=== PATIENT | female | born 1940 | race Caucasian/White ===

== ENCOUNTER 2023-10-29 19:30 | Inpatient (IN) | payer MEDICARE, BC ==
--- NOTE | 2023-10-29 19:39 | ED ---
Recheck HPI - General Stated Complaint: AFib RvR Time Seen by Provider: 10/29/23 19:32 Source: RN notes reviewed, old records reviewed Mode of arrival: ambulatory Limitations: no limitations - History of Present Illness Initial Comments: This is a 83-year-old female who presents with new onset atrial fibrillation with RVR. Patient feeling improved here in the ER and will be transferred for admission and accepted in transfer for admission to cardiology -: hour(s) Symptoms Since Prior Visit: no new symptoms Associated Symptoms: none Treatments Prior to Arrival: other (0) - Related Data Home Medications Medication Instructions Recorded Confirmed Aspirin 81 mg PO DAILY 12/14/15 10/29/23 Atorvastatin [Lipitor] 40 mg PO HS 10/29/23 10/29/23 metFORMIN HCL 1,000 mg PO BID 10/29/23 10/29/23 Previous Rx's Medication Instructions Recorded Apixaban [Eliquis] 5 mg PO BID #60 tab 11/02/23 Dapagliflozin Propanediol [Farxiga] 10 mg PO DAILY #30 tab 11/02/23 Furosemide [Lasix] 40 mg PO DAILY #30 tab 11/02/23 Losartan [Cozaar] 12.5 mg PO DAILY #30 tab 11/02/23 Magnesium Oxide [Mag-Ox] 400 mg PO DAILY #30 tab 11/02/23 Metoprolol Tartrate [Lopressor] 75 mg PO BID #180 tab 11/02/23 Allergies Allergy/AdvReac Type Severity Reaction Status Date / Time ibuprofen [From Motrin] Allergy Rash/Hives Verified 10/29/23 20:14 Review of Systems ROS Statement: Those systems with pertinent positive or pertinent negative responses have been documented in the HPI. ROS Other: All systems not noted in ROS Statement are negative. Past Medical History Past Medical History: Cancer, Diabetes Mellitus, GERD/Reflux, Hyperlipidemia, Hypertension, Osteoarthritis (OA) Additional Past Medical History / Comment(s): SKIN CANCER History of Any Multi-Drug Resistant Organisms: None Reported Past Surgical History: Appendectomy, Back Surgery, Section, Cholecystectomy, Hernia Repair, Joint Replacement, Tubal Ligation Additional Past Surgical History / Comment(s): NECK SURGERY, Past Anesthesia/Blood Transfusion Reactions: No Reported Reaction Past Psychological History: Anxiety Past Alcohol Use History: Rare Additional Past Alcohol Use History / Comment(s): STARTED SMOKING AT AGE 20 QUIT SMOKING IN 2005 SMOKED 3/4 PPD Past Drug Use History: None Reported - Past Family History Sister(s) Family Medical History: Cancer Additional Family Medical History / Comment(s): BREAST CANCER / ANOTHER SISTER HAD LEUKEMIA Son(s) Family Medical History: Cancer Additional Family Medical History / Comment(s): MELENOMA Brother(s) Family Medical History: Cancer Additional Family Medical History / Comment(s): SKIN CANCER General Exam General appearance: alert, in no apparent distress, anxious Head exam: Present: atraumatic, normocephalic, normal inspection Eye exam: Present: normal appearance, PERRL, EOMI. Absent: scleral icterus, conjunctival injection, periorbital swelling ENT exam: Present: normal exam, mucous membranes moist Neck exam: Present: normal inspection. Absent: tenderness, meningismus, lymph adenopathy Respiratory exam: Present: normal lung sounds bilaterally. Absent: respiratory distress, wheezes, rales, rhonchi, stridor Cardiovascular Exam: Present: tachycardia, irregular rhythm, normal heart sounds. Absent: systolic murmur, diastolic murmur, rubs, gallop, clicks GI/Abdominal exam: Present: soft, normal bowel sounds. Absent: distended, tenderness, guarding, rebound, rigid Extremities exam: Present: normal inspection, full ROM, normal capillary refill. Absent: tenderness, pedal edema, joint swelling, calf tenderness Back exam: Present: normal inspection Neurological exam: Present: alert, oriented X3, CN II-XII intact Psychiatric exam: Present: normal affect, normal mood Skin exam: Present: warm, dry, intact, normal color. 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 ] Respiratory 20 Rate Blood Pressure 140/81 Blood Pressure [Left Arm] O2 Sat by Pulse 74 L 76 L Oximetry Fraction of 100 Inspired Oxygen (FIO2) 10/29/23 10/29/23 10/29/23 20:16 21:03 21:42 Temperature Pulse Rate 125 H 115 H 90 Pulse Rate [ 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 Production ] Respiratory 18 Rate Blood Pressure 107/64 Blood Pressure [Left Arm] O2 Sat by Pulse 97 Oximetry Fraction of 100 Inspired Oxygen (FIO2) 10/29/23 10/29/23 10/30/23 23:06 23:56 04:00 Temperature Pulse Rate 90 Pulse Rate [ 102 H 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 Production ] Respiratory 20 26 H Rate Blood Pressure 113/81 Blood Pressure 120/90 [Left Arm] O2 Sat by Pulse 94 L 93 L 90 L Oximetry Fraction of Inspired Oxygen (FIO2) 10/30/23 10/30/23 10/30/23 08:21 09:25 10:43 Temperature 98.3 F Pulse Rate 77 63 58 L Pulse Rate [ 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 Production ] Respiratory 18 18 18 Rate Blood Pressure 115/72 133/73 107/70 Blood Pressure [Left Arm] O2 Sat by Pulse 95 93 L 100 Oximetry Fraction of Inspired Oxygen (FIO2) 10/30/23 10/30/23 10/30/23 12:42 16:02 18:46 Temperature 97.9 F Pulse Rate 81 90 Pulse Rate [ 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 Production ] Respiratory 18 18 Rate Blood Pressure 151/94 Blood Pressure [Left Arm] O2 Sat by Pulse 100 96 97 Oximetry Fraction of Inspired Oxygen (FIO2) 10/30/23 20:32 Temperature Pulse Rate 78 Pulse Rate [ 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 Production ] Respiratory 18 Rate Blood Pressure 147/70 Blood Pressure [Left Arm] O2 Sat by Pulse 96 Oximetry Fraction of Inspired Oxygen (FIO2) - Reevaluation(s) Reevaluation #1: 10/29/23 19:38 Records reviewed Reevaluation #2: 10/29/23 19:38 Patient remains asymptomatic here in the ER Reevaluation #3: 10/29/23 19:39 Patient informed of results and questions answered Reevaluation #4: Was pt. sent in by a medical professional or institution (, PA, INSPECTOR TUBES, urgent care, hospital, or detention...) When possible be specific @ -no Did you speak to anyone other than the patient for history (EMS, parent, family, police, friend...)? What history was obtained from this source @ -no Did you review nursing and triage notes (agree or disagree)? Why? @ -agree Are old charts reviewed (outside hosp., previous admission, EMS record, old EKG, old radiological studies, urgent care reports/EKG's, detention records)? Report findings @ -yes Differential Diagnosis (chest pain, altered mental status, abdominal pain women, abdominal pain men, vaginal bleeding, weakness, fever, dyspnea, syncope, he adache, dizziness, GI bleed, back pain, seizure, CVA, palpatations, mental health, musculoskeletal)? @ -prior EKG interpreted by me (3pts min.). @ -yes X-rays interpreted by me (1pt min.). @ -yes positive for CHF CT interpreted by me (1pt min.). @ -no U/S interpreted by me (1pt. min.). @ -no What testing was considered but not performed or refused? (CT, X-rays, U/S, labs)? Why? @ -none What meds were considered but not given or refused? Why? @ -none Did you discuss the management of the patient with other professionals (professionals i.e. Dr., PA, INSPECTOR TUBES, lab, RT, psych nurse, social media community manager, air boatswain, teacher, debt recovery officer, rifle case repairer)? Give summary @ -no Was smoking cessation discussed for >3mins.? @ -no Was critical care preformed (if so, how long)? @ -yes31 Were there social determinants of health that impacted care today? How? (Homelessness, low income, unemployed, alcoholism, drug addiction, transportation, low edu. Level, literacy, decrease access to med. care, shelter, rehab)? @ -none Was there de-escalation of care discussed even if they declined (Discuss DNR or withdrawal of care, Hospice)? DNR status @ -no What co-morbidities impacted this encounter? (DM, HTN, Smoking, COPD, CAD, Cancer, CVA, ARF, Chemo, Hep., AIDS, mental health diagnosis, sleep apnea, morbid obesity)? @ -none Was patient admitted / discharged? Hospital course, mention meds given and route, prescriptions, significant lab abnormalities, going to OR and other pertinent info. @ - 83 female to ER accepted in transfer for atrial fibrillation with RVR will be admitted for new onset A-fib with RVR currently with better rate control Admitted Undiagnosed new problem with uncertain prognosis? @ -no Drug Therapy requiring intensive monitoring for toxicity (Heparin, Nitro, Insulin, Cardizem)? @ -no Were any procedures done? @ -no Diagnosis/symptom? @ -A-fib with RVR CHF with hypoxia Acute, or Chronic, or Acute on Chronic? @ -Acute Uncomplicated (without systemic symptoms) or Complicated (systemic symptoms)? @ -Complicated Side effects of treatment? @ -no Exacerbation, Progression, or Severe Exacerbation? @ -exacerbation Poses a threat to life or bodily function? How? (Chest pain, [place], [place], pneumonia, PE, COPD, DKA, ARF, appy, cholecystitis, CVA, Diverticulitis, Homicidal, Suicidal, threat to staff... and all critical care pts) @ -yes arrhythmia Reevaluation #5: Differential Palpitations Ventricular arrhythmias, atrial arrhythmias, myocardial infarction, anemia, thyrotoxicosis, electrolyte imbalance, hypokalemia, pulmonary embolism, pulmonary disease, drugs, alcohol, anxiety, stress.... This is not meant to be an all-inclusive list. - Consultations Consultation #1: With admitting physicians who agreed to admit this patient Medical Decision Making - Medical Decision Making 83 female to ER accepted in transfer for atrial fibrillation with RVR will be admitted for new onset A-fib with RVR currently with better rate control - Lab Data Result diagrams: 11/02/23 11:09 11/02/23 11:09 - EKG Data -: EKG Interpreted by Me (EKG is A-fib with RVR 131 QRS 150 QTc 409) - Radiology Data Radiology results: report reviewed (Chest x-ray is positive for CHF), image reviewed Critical Care Time Critical Care Time: Yes Total Critical Care Time: 31 Disposition Clinical Impression: New onset atrial fibrillation, Atrial fibrillation with rapid ventricular response, CHF (congestive heart failure), Pulmonary edema Disposition: ADMITTED IP TO THIS HOSP Is patient prescribed a controlled substance at d/c from ED?: No Time of Disposition: 20:00
[2023-10-29] MEDS ORDERED: MORPHINE SULFATE 4 MG/ML SYRINGE IV PRN (19:40)
[2023-10-29] MEDS ORDERED: NALOXONE 0.4 MG/ML 1 ML VIAL IV PRN (19:40)
[2023-10-29] MEDS ORDERED: ONDANSETRON 4 MG/2 ML VIAL IVP PRN (19:40)
[2023-10-29] MEDS: IPRATROPIUM-ALBUTEROL 3 ML NEB INHALATION STA (20:16)
[2023-10-29] MEDS: LORazepam 2 MG/ML INJ IV STA (20:22)
[2023-10-29] MEDS: MAGNESIUM SULFATE-D5W PMX 1 GM in DEXTROSE/WATER 1 100ML.BAG IVPB ONE (20:27)
[2023-10-29] MEDS: SODIUM CHLORIDE 0.9% 1,000 ML IV SCH (20:27)
--- NOTE | 2023-10-29 20:54 | XR ---
EXAMINATION TYPE: XR chest 1V portable DATE OF EXAM: 10/29/2023 HISTORY: Shortness of breath. COMPARISON: None. TECHNIQUE: Single view of the chest is submitted. FINDINGS: Demonstrated are scattered senescent parenchymal change. Perihilar and bibasilar infiltrates may reflect pneumonia however pulmonary edema is an additional co nsideration. Correlate clinically. The heart is mildly enlarged. Hilar and mediastinal structures are within normal limits. Degenerative changes are seen of the dorsal spine. IMPRESSION: 1. Perihilar and bibasilar infiltrates may reflect pneumonia however pulmonary edema is an additiona l consideration. Correlate clinically.
[2023-10-29] MEDS: DILTIAZEM 125 MG in SODIUM CHLORIDE 0.9% 100 ML IV SCH (21:33)
[2023-10-29] MEDS: DILTIAZEM DRIP BOLUS FROM BAG 1 MG SOLN IV ONE (21:33)
[2023-10-29] MEDS: HEPARIN SOD,PORK IN 0.45% NACL 25,000 UNIT in 0.45% NACL 1 250ML.BAG IV SCH (21:39)
[2023-10-30 04:30] LABS: Basophils # (A) 0.1 k/uL (0-0.2); Basophils % (A) 1 %; Eosinophils # (A) 0.3 k/uL (0-0.7); Eosinophils % (A) 2 %; HCT 34.4 % (34.0-46.0); Hypochromasia Slight; Lymphocytes # (A) 3.7 k/uL (1.0-4.8); Lymphocytes % (A) 30 %; MCH 27.9 pg (25.0-35.0); Mean Platelet Volume 7.6; Monocytes # (A) 0.6 k/uL (0-1.0); Monocytes % (A) 5 %; Neutrophils # (A) 7.4 k/uL (1.3-7.7); Neutrophils % (A) 61 %; Platelet Count 303 k/uL (150-450); RBC 3.95 m/uL (3.80-5.40); RDW 14.7 % (11.5-15.5); WBC 12.1 k/uL (3.8-10.6)
[2023-10-30 04:43] LABS: ALT 18 U/L (4-34); AST 27 U/L (14-36); African American GFR (CKD) 59 (>60 ml/min/1.73 sqM); Albumin 3.6 g/dL (3.5-5.0); Alkaline Phosphatase 72 U/L (38-126); Anion Gap 12 mmol/L; Blood Urea Nitrogen 28 mg/dL (7-17); Calcium 8.9 mg/dL (8.4-10.2); Carbon Dioxide 23 mmol/L (22-30); Chloride 103 mmol/L (98-107); Glucose 122 mg/dL (74-99); Magnesium 1.3 mg/dL (1.6-2.3); Non-African American GFR(CKD) 51 (>60 ml/min/1.73 sqM); Phosphorus 4.8 mg/dL (2.5-4.5); Potassium 3.7 mmol/L (3.5-5.1); Sodium 138 mmol/L (137-145); Total Bilirubin 0.5 mg/dL (0.2-1.3); Total Protein 6.7 g/dL (6.3-8.2)
[2023-10-30] MEDS: HEPARIN SODIUM 1,000 UN/ML (10ML VL) IV PRN (04:55)
[2023-10-30] MEDS ORDERED: DEXTROSE 50% SYRINGE 50 ML IVP PRN ×2 (10:03)
[2023-10-30] MEDS ORDERED: METOPROLOL TARTRATE 50 MG TAB PO SCH (10:15)
[2023-10-30] MEDS: FUROSEMIDE 10 MG/ML 4 ML VIAL IV SCH (10:38)
[2023-10-30] MEDS: metFORMIN 500 MG TAB PO SCH (10:38)
[2023-10-30] MEDS: ASPIRIN 81 MG PO SCH (10:38)
[2023-10-30 12:42] LABS: Glucose,Whole Blood 151 mg/dL (70-110)
[2023-10-30] MEDS: INSULIN ASPART (NovoLOG) 100 UNIT/ML VIAL SQ SCH (12:57)
--- NOTE | 2023-10-30 15:43 | P.CRDCN ---
History of Present Illness Consult date: 10/30/23 Consult reason: atrial fibrillation (A-fib with RVR) History of present illness: HISTORY OF PRESENT ILLNESS: Is a 83 year-old female with past medical history significant for hypertension hyperlipidemia, diabetes, chronic back pain status post surgical repair of scoliosis and ruptured disc over 10 years ago.. She is a patient of Dr. Jose rader nd follows up with him in the office. We have been asked to see the patient in consultation for A-fib with RVR. Patient was examined at the bedside in the emergency room. Patient states she could not breathe, which started on Thursday. She states yesterday she could not do much due to shortness of breath and could not catch her breath. She endorses dyspnea on exertion, feeling heaviness in the chest and a little leg swelling for the last week or so. She denies orthopnea chest pain weight gain or palpitations. She is currently in sinus rhythm. DIAGNOSTICS: - EKG reveals showed A-fib with RVR rate of 131 - Chest xray shows perihilar and bibasilar infiltrates possibly pneumonia or pulmonary edema - Laboratory data: WBCs 12.1. Hemoglobin 11. PTT 34.6. Phosphorus 4.8. Magnesium 1.3. Troponins x 2 negative. - Current home cardiac medications include Lipitor 40 mg daily, aspirin 81 mg daily, lisinopril 40 mg daily, amlodipine 5 mg daily, metoprolol 150 mg daily, hydrochlorothiazide 25 mg daily Most recent echocardiogram in February 2021 showed EF 55%, mild MR, mild TR. REVIEW OF SYSTEMS: At the time of my exam as stated above in HPI. PHYSICAL EXAM: VITAL SIGNS: Reviewed. Normotensive, hemodynamically stable, satting well on 15 L high flow nasal cannula GENERAL: Well-developed in no acute distress. HEENT: Head is normocephalic. Pupils are equal, round. Sclerae anicteric. Mucous membranes of the mouth are moist. Neck supple. No JVD or thyromegaly LUNGS: Respirations even. Bilateral rhonchi and crackles HEART: S1-S2 present no murmurs rubs or gallops. Regular rate and rhythm ABDOMEN: Soft. Nontender to palpation. EXTREMITIES: Normal range of motion. No clubbing or cyanosis. Peripheral pulses intact. Edema in bilateral lower extremities NEUROLOGIC: Awake and alert. Oriented x 3. ASSESSMENT: Suspect heart failure exacerbation, no history of CHF Pulmonary edema A-fib with RVR, currently sinus rhythm Hypertension currently normotensive Hyperlipidemia Hypomagnesemia Diabetes Chronic back pain PLAN: Follow-up on echocardiogram Discontinued Cardizem drip Discontinued IV fluids Continue aspirin 81 mg daily, Lipitor 40 mg daily Continue IV Lasix 40 mg every 12 hours BP meds held due to controlled pressures Optimization of glucose control per primary team Wean oxygen as tolerated Monitor volume status, I's and O's, daily weights, electrolytes and renal function Further recommendations to follow based upon clinical course Thank you kindly for this consultation. Past Medical History Past Medical History: Cancer, Diabetes Mellitus, GERD/Reflux, Hyperlipidemia, Hypertension, Osteoarthritis (OA) Additional Past Medical History / Comment(s): SKIN CANCER History of Any Multi-Drug Resistant Organisms: None Reported Past Surgical History: Appendectomy, Back Surgery, Section, Cholecystectomy, Hernia Repair, Joint Replacement, Tubal Ligation Additional Past Surgical History / Comment(s): NECK SURGERY, Past Anesthesia/Blood Transfusion Reactions: No Reported Reaction Smoking Status: Former smoker - Past Family History Sister(s) Family Medical History: Cancer Additional Family Medical History / Comment(s): BREAST CANCER / ANOTHER SISTER HAD LEUKEMIA Son(s) Family Medical History: Cancer Additional Family Medical History / Comment(s): MELENOMA Brother(s) Family Medical History: Cancer Additional Family Medical History / Comment(s): SKIN CANCER Medications and Allergies Home Medications Medication Instructions Recorded Confirmed Type Aspirin 81 mg PO DAILY 12/14/15 10/29/23 History Metoprolol Tartrate [Lopressor] 100 mg PO DAILY 12/14/15 10/29/23 History Naproxen 500 mg PO DAILY 12/14/15 10/29/23 History hydroCHLOROthiazide [Hydrodiuril] 25 mg PO DAILY 12/14/15 10/29/23 History Atorvastatin [Lipitor] 40 mg PO HS 10/29/23 10/29/23 History Metoprolol Tartrate [Lopressor] 50 mg PO W/SUPPER 10/29/23 10/29/23 History amLODIPine [Norvasc] 5 mg PO DAILY 10/29/23 10/29/23 History lisinopriL 40 mg PO DAILY 10/29/23 10/29/23 History metFORMIN HCL 1,000 mg PO BID 10/29/23 10/29/23 History Allergies Allergy/AdvReac Type Severity Reaction Status Date / Time ibuprofen [From Motrin] Allergy Rash/Hives Verified 10/29/23 20:14 Physical Exam Vitals: Vital Signs Temp Pulse Pulse Resp BP BP Pulse Ox 10/30/23 10:43 58 L 18 107/70 100 10/30/23 09:25 63 18 133/73 93 L 10/30/23 08:21 98.3 F 77 18 115/72 95 10/30/23 04:00 102 H 26 H 120/90 90 L 10/29/23 23:56 93 L 10/29/23 23:06 90 20 113/81 94 L 10/29/23 21:42 90 18 107/64 97 10/29/23 21:03 115 H 10/29/23 20:16 125 H 10/29/23 20:13 10/29/23 20:02 76 L 10/29/23 19:48 97.4 F L 133 H 20 140/81 74 L FiO2 10/30/23 10:43 10/30/23 09:25 10/30/23 08:21 10/30/23 04:00 10/29/23 23:56 10/29/23 23:06 10/29/23 21:42 10/29/23 21:03 10/29/23 20:16 100 10/29/23 20:13 100 10/29/23 20:02 10/29/23 19:48 Intake and Output 10/29/23 10/30/23 10/30/23 22:59 06:59 14:59 Intake Total 70.219 Balance 70.219 Intake: Intake, IV Titration 70.219 Amount Heparin Sod,Pork in 0.45% 70.219 NaCl 25,000 unit In 0.45 % NaCl 1 250ml.bag @ 12 UNITS/KG/HR 9.798 mls/hr IV .Q24H [facility] Rx#: [id number] Other: Weight 81.647 kg 81.647 kg Results 10/30/23 04:07 10/30/23 04:07 Cardiac Enzymes 10/29/23 10/30/23 10/30/23 Range/Units 20:51 00:45 04:07 AST 27 (14-36) U/L Troponin I <0.012 <0.012 (0.000-0.034) ng/mL Coagulation 10/30/23 Range/Units 04:07 APTT 35.1 H (22.0-30.0) sec CBC 10/30/23 Range/Units 04:07 WBC 12.1 H (3.8-10.6) k/uL RBC 3.95 (3.80-5.40) m/uL Hgb 11.0 L (11.4-16.0) gm/dL Hct 34.4 (34.0-46.0) % Plt Count 303 (150-450) k/uL Comprehensive Metabolic Panel 10/30/23 Range/Units 04:07 Sodium 138 (137-145) mmol/L Potassium 3.7 (3.5-5.1) mmol/L Chloride 103 (98-107) mmol/L Carbon Dioxide 23 (22-30) mmol/L BUN 28 H (7-17) mg/dL Creatinine 1.01 (0.52-1.04) mg/dL Glucose 122 H (74-99) mg/dL Calcium 8.9 (8.4-10.2) mg/dL AST 27 (14-36) U/L ALT 18 (4-34) U/L Alkaline Phosphatase 72 (38-126) U/L Total Protein 6.7 (6.3-8.2) g/dL Albumin 3.6 (3.5-5.0) g/dL Current Medications Generic Name Dose Route Start Last Admin Trade Name Freq PRN Reason Stop Dose Admin Aspirin 81 mg 10/30/23 10:15 10/30/23 10:38 Aspirin 81 Mg PO 81 mg DAILY NANNETTE Administration Atorvastatin Calcium 40 mg 10/30/23 21:00 Atorvastatin 40 Mg Tab PO HS NANNETTE Dextrose/Water 25 ml 10/30/23 10:03 Dextrose 50% Syringe 50 Ml IVP PER PROTOCOL PRN Hypoglycemia Protocol Dextrose/Water 50 ml 10/30/23 10:03 Dextrose 50% Syringe 50 Ml IVP PER PROTOCOL PRN Hypoglycemia Protocol Furosemide 40 mg 10/30/23 09:00 10/30/23 10:38 Furosemide 10 Mg/Ml 4 Ml Vial IV 40 mg Q12HR NANNETTE Administration Heparin Sodium (Porcine) 0 unit 10/29/23 19:56 10/30/23 04:55 Heparin Sodium 1,000 Un/Ml (10ml Vl) IV 2,025 unit PER PROTOCOL PRN Administration Low PTT Protocol Heparin Sodium/Sodium Chloride 250 mls @ 9.798 mls/hr 10/29/23 20:00 10/30/23 04:49 25,000 unit/ Sodium Chloride IV 14 units/kg/hr .Q24H [facility] 11.431 mls/hr Titration Protocol 12 UNITS/KG/HR Insulin Aspart 0 unit 10/30/23 12:30 Insulin Aspart (Novolog) 100 Unit/Ml Vial SQ AC-TID [facility] Protocol Metformin HCl 1,000 mg 10/30/23 10:15 10/30/23 10:38 Metformin 500 Mg Tab PO 1,000 mg BID NANNETTE Administration Morphine Sulfate 4 mg 10/29/23 19:40 Morphine Sulfate 4 Mg/Ml Syringe IV Q4HR PRN Severe Pain (Scale 7 to 10) Naloxone HCl 0.2 mg 10/29/23 19:40 Naloxone 0.4 Mg/Ml 1 Ml Vial IV Q2M PRN Opioid Reversal Ondansetron HCl 4 mg 10/29/23 19:40 Ondansetron 4 Mg/2 Ml Vial IVP Q8HR PRN Nausea And Vomiting Intake and Output 10/29/23 10/30/23 10/30/23 22:59 06:59 14:59 Intake Total 70.219 Balance 70.219 Intake: Intake, IV Titration 70.219 Amount Heparin Sod,Pork in 0.45% 70.219 NaCl 25,000 unit In 0.45 % NaCl 1 250ml.bag @ 12 UNITS/KG/HR 9.798 mls/hr IV .Q24H [facility] Rx#: [id number] Other: Weight 81.647 kg 81.647 kg 10/30/23 04:07 10/30/23 04:07
--- NOTE | 2023-10-30 15:51 | P.HPIM ---
History of Present Illness H&P Date: 10/30/23 Chief Complaint: Short of breath This is a pleasant 83-year-old patient who follows with Dr. 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 Chronic stable medical conditions include diabetes, GERD, hypertension, hyperlipidemia, osteoarthritis. No known prior cardiac history. Patient presents to ER with 2 days of unable to breathe. Some edema. Slight cough. No fever no chills. Feeling slight heaviness in the chest. She was found to be in atrial fibrillation with rapid ventricular rate overnight. Started on a Cardizem drip and IV heparin drip. This morning the Cardizem drip taken off. Rate better controlled. Patient on 15 L of nasal cannula. Heart rate this morning in the 90s. Review of systems: GEN.: Tired EYES: None HEENT: None NECK: None RESPIRATORY: As above e CARDIOVASCULAR: As above GASTROINTESTINAL: None GENITOURINARY: None MUSCULOSKELETAL: Multiple joint pains. Including right sciatica e LYMPHATICS: None HEMATOLOGICAL: None PSYCHIATRY: None NEUROLOGICAL: None Social history: Lives alone. Patient started smoking at age of 20 stopped in 2005. Smoked about three-quarter pack a day. Alcohol rarely. Physical examination: VITAL SIGNS: 97.4, 133, 26, 140/81, 76% on 10 L nonrebreather on presentation GENERAL: BMI 30,. Reclining in bed, tired short of breath EYES: Pupils equal. Conjunctiva armaan l. HEENT: External appearance of nose and ears normal, oral cavity grossly normal. NECK: JVD possibly raised; masses not palpable. HEART: Irregular heart sounds; edema present. LUNGS: Respiratory rate increased, decreased breath sounds. ABDOMEN: Soft, nontender, liver spleen not palpable, no masses palpable. PSYCH: Alert and oriented x3; mood and affect armaan l. MUSCULOSKELETAL:No Clubbing/cyanosis;muscles-grossly intact, OA NEUROLOGICAL: Cranial nerves grossly intact; no facial asymmetry, power and s ensation grossly intact. LYMPHATICS: No lymph nodes palpable in the axilla and neck INVESTIGATIONS, reviewed in the clinical context: December 30, 2023: White count 12.1 hemoglobin 11 platelets 303 sodium 138 potassium 3.7 BUN 28 creatinine 1.01 Troponin I less than 0.012 x 2 EKG tracing personally reviewed by me-atrial fibrillation. Right bundle gaby block. Rate 131 Chest x-ray film personally reviewed by me-cardiomegaly. Pulm edema Assessment plan: -Acute congestive heart failure exacerbation precipitated by uncontrolled atrial fibrillation. EF not known currently. Causing acute hypoxic respiratory failure IV Lasix every 12. I's and O's. 2D echocardiogram. Cardiology consulted -New onset of atrial fibrillation rapid ventricular rate. Started on Cardizem drip overnight. This morning discontinued. Heart rate currently in the 90s. IV heparin. -Acute hypoxic respiratory failure severe secondary to pulm edema Initially on 15 L nasal cannula. Titrate down oxygen -Hyperlipidemia Lipitor 40 mg nightly -Essential hypertension Blood pressure medications per cardiology -Diabetes mellitus type 2 on oral hypoglycemic Metformin. Diabetic diet. -Primary osteoarthritis Naproxen. Tylenol as needed -DNR Care was discussed with patient. Questions answered. Past Medical History Past Medical History: Cancer, Diabetes Mellitus, GERD/Reflux, Hyperlipidemia, Hypertension, Osteoarthritis (OA) Additional Past Medical History / Comment(s): SKIN CANCER History of Any Multi-Drug Resistant Organisms: None Reported Past Surgical History: Appendectomy, Back Surgery, Section, Cholecystectomy, Hernia Repair, Joint Replacement, Tubal Ligation Additional Past Surgical History / Comment(s): NECK SURGERY, Past Anesthesia/Blood Transfusion Reactions: No Reported Reaction Smoking Status: Former smoker - Past Family History Sister(s) Family Medical History: Cancer Additional Family Medical History / Comment(s): BREAST CANCER / ANOTHER SISTER HAD LEUKEMIA Son(s) Family Medical History: Cancer Additional Family Medical History / Comment(s): MELENOMA Brother(s) Family Medical History: Cancer Additional Family Medical History / Comment(s): SKIN CANCER Medications and Allergies Home Medications Medication Instructions Recorded Confirmed Type Aspirin 81 mg PO DAILY 12/14/15 10/29/23 History Metoprolol Tartrate [Lopressor] 100 mg PO DAILY 12/14/15 10/29/23 History Naproxen 500 mg PO DAILY 12/14/15 10/29/23 History hydroCHLOROthiazide [Hydrodiuril] 25 mg PO DAILY 12/14/15 10/29/23 History Atorvastatin [Lipitor] 40 mg PO HS 10/29/23 10/29/23 History Metoprolol Tartrate [Lopressor] 50 mg PO W/SUPPER 10/29/23 10/29/23 History amLODIPine [Norvasc] 5 mg PO DAILY 10/29/23 10/29/23 History lisinopriL 40 mg PO DAILY 10/29/23 10/29/23 History metFORMIN HCL 1,000 mg PO BID 10/29/23 10/29/23 History Allergies Allergy/AdvReac Type Severity Reaction Status Date / Time ibuprofen [From Motrin] Allergy Rash/Hives Verified 10/29/23 20:14 Physical Exam Vitals: Vital Signs Temp Pulse Pulse Resp BP BP Pulse Ox 10/30/23 09:25 63 18 133/73 93 L 10/30/23 08:21 98.3 F 77 18 115/72 95 10/30/23 04:00 102 H 26 H 120/90 90 L 10/29/23 23:56 93 L 10/29/23 23:06 90 20 113/81 94 L 10/29/23 21:42 90 18 107/64 97 10/29/23 21:03 115 H 10/29/23 20:16 125 H 10/29/23 20:13 10/29/23 20:02 76 L 10/29/23 19:48 97.4 F L 133 H 20 140/81 74 L FiO2 10/30/23 09:25 10/30/23 08:21 10/30/23 04:00 10/29/23 23:56 10/29/23 23:06 10/29/23 21:42 10/29/23 21:03 10/29/23 20:16 100 10/29/23 20:13 100 10/29/23 20:02 10/29/23 19:48 Intake and Output 10/29/23 10/30/23 10/30/23 22:59 06:59 14:59 Intake Total 70.219 Balance 70.219 Intake: Intake, IV Titration 70.219 Amount Heparin Sod,Pork in 0.45% 70.219 NaCl 25,000 unit In 0.45 % NaCl 1 250ml.bag @ 12 UNITS/KG/HR 9.798 mls/hr IV .Q24H [facility] Rx#: [id number] Other: Weight 81.647 kg 81.647 kg Results CBC & Chem 7: 10/30/23 04:07 10/30/23 04:07 Labs: Abnormal Lab Results - Last 24 Hours (Table) 10/30/23 10/30/23 10/30/23 Range/Units 04:07 04:07 04:07 WBC 12.1 H (3.8-10.6) k/uL Hgb 11.0 L (11.4-16.0) gm/dL APTT 35.1 H (22.0-30.0) sec BUN 28 H (7-17) mg/dL Glucose 122 H (74-99) mg/dL Phosphorus 4.8 H (2.5-4.5) mg/dL Magnesium 1.3 L (1.6-2.3) mg/dL Thrombosis Risk Factor Assmnt - Choose All That Apply Other Risk Factors: Yes Each Risk Factor Represents 3 Points: Age 75 years or older Thrombosis Risk Factor Assessment Total Risk Factor Score: 3 Thrombosis Risk Factor Assessment Level: Moderate Risk
[2023-10-30 18:43] LABS: Glucose,Whole Blood 129 mg/dL (70-110)
[2023-10-30 22:00] LABS: Glucose,Whole Blood 152 mg/dL (70-110)
[2023-10-30] MEDS: ATORVASTATIN 40 MG TAB PO SCH (22:16)
[2023-10-30] MEDS: METOPROLOL TARTRATE 25 MG TAB PO SCH (22:35)
[2023-10-31 06:04] LABS: Glucose,Whole Blood 130 mg/dL (70-110)
--- NOTE | 2023-10-31 09:21 | P.PN ---
Subjective Progress Note Date: 10/31/23 The patient was seen and evaluated. She is feeling better with the shortness of breath has improved which has been maintaining normal sinus mechanism with the echo still pending. She is on IV Lasix and the kidney function seems to be stable. The physical examination is remarkable for mild sinus tachycardia with regular rhythm and clear breathing sounds bilaterally and mild bilateral lower extremities edema Assessment Heart failure of unknown etiology Paroxysmal atrial fibrillation currently the patient is in sinus rhythm The multiple comorbid conditions Plan Continue Lasix for additional 24 hours Follow-up on the echocardiogram Follow-up with the kidney function and electrolytes and continue monitoring the kidney function and electrolytes Please start the patient on metoprolol Consider switching the patient to oral anticoagulation once the echo is back and we know that she does not need any invasive procedure Objective - Vital Signs Vital signs: Vital Signs Temp 97.8 F 10/31/23 08:00 Pulse 115 H 10/31/23 08:00 Resp 18 10/31/23 08:00 BP 149/81 10/31/23 08:00 Pulse Ox 97 10/31/23 08:00 FiO2 100 10/29/23 20:16 Intake & Output 10/30/23 10/31/23 10/31/23 18:59 06:59 18:59 Intake Total 353.900 22.1 Output Total 850 Balance -496.100 22.1 Weight 81.6 kg Intake: Intake, IV Titration 293.900 22.1 Amount Heparin Sod,Pork in 0.45% 293.900 22.1 NaCl 25,000 unit In 0.45 % NaCl 1 250ml.bag @ 12 UNITS/KG/HR 9.798 mls/hr IV .Q24H [facility] Rx#: [id number] Oral 60 Output: Urine 850 Other: Voiding Method External Catheter - Labs CBC & Chem 7: 10/30/23 04:07 10/30/23 04:07 Labs: Abnormal Lab Results - Last 24 Hours (Table) 10/30/23 10/30/23 10/30/23 Range/Units 11:23 12:41 18:43 APTT 34.6 H (22.0-30.0) sec POC Glucose (mg/dL) 151 H 129 H (70-110) mg/dL Magnesium (1.6-2.3) mg/dL 10/30/23 10/30/23 10/31/23 Range/Units 21:07 21:57 06:03 APTT 49.6 H (22.0-30.0) sec POC Glucose (mg/dL) 152 H 130 H (70-110) mg/dL Magnesium (1.6-2.3) mg/dL 10/31/23 10/31/23 Range/Units 07:13 07:13 APTT 108.3 H* (22.0-30.0) sec POC Glucose (mg/dL) (70-110) mg/dL Magnesium 1.2 L (1.6-2.3) mg/dL
[2023-10-31 11:32] LABS: Glucose,Whole Blood 154 mg/dL (70-110)
[2023-10-31] MEDS: METOPROLOL TARTRATE 25 MG TAB PO SCH (12:08)
--- NOTE | 2023-10-31 16:17 | CA ---
Transthoracic Echo Report Name: Sarah Mason Age: 83 Gender: F : 1940 Exam Date: 10/30/2023 14:59 Exam Location: [place] [facility] Ht (in): 65 Wt (lb): 180 Ordering Physician: Tori Headley Attending/Referring Phys: [id number], Fang Gluing Machine Feeder Samantha Fong RDCS Procedure CPT: Indications: LVF Cardiac Hx: Technical Quality: Fair Contrast 1: Total Dose (mL): Contrast 2: Total Dose (mL): MEASUREMENTS (Male / Female) Normal Values 2D ECHO LV Diastolic Diameter PLAX 3.6 cm 4.2 - 5.9 / 3.9 - 5.3 cm LV Systolic Diameter PLAX 2.3 cm IVS Diastolic Thickness 1.3 cm 0.6 - 1.0 / 0.6 - 0.9 cm LVPW Diastolic Thickness 1.3 cm 0.6 - 1.0 / 0.6 - 0.9 cm LV Relative Wall Thickness 0.7 RV Internal Dim ED PLAX 2.7 cm LA Systolic Diameter LX 4.4 cm 3.0 - 4.0 / 2.7 - 3.8 cm LV Diastolic Volume MOD BP 43.4 cm??? 67 - 155 / 56 - 104 cm??? LV Systolic Volume MOD BP 16.4 cm??? 22 - 58 / 19 - 49 cm??? LV Ejection Fraction MOD BP 62.1 % >= 55 % LV Cardiac Index MOD BP 1140.4 cm???/min???m??? LV Diastolic Volume MOD 4C 43.4 cm??? LV Systolic Volume MOD 4C 18.1 cm??? LV Ejection Fraction MOD 4C 58.3 % LV Cardiac Index MOD 4C 1071.8 cm???/min???m??? LV Diastolic Length 4C 6.8 cm LV Systolic Length 4C 5.3 cm LV Diastolic Volume MOD 2C 42.7 cm??? LV Systolic Volume MOD 2C 14.8 cm??? LV Ejection Fraction MOD 2C 65.3 % LV Cardiac Index MOD 2C 1179.8 cm???/min???m??? LV Diastolic Length 2C 6.5 cm LV Systolic Length 2C 5.2 cm LA Volume 44.5 cm??? 18 - 58 / 22 - 52 cm??? LA Volume Index 22.7 cm???/m??? 16 - 28 cm???/m??? M-MODE Aortic Root Diameter MM 3.5 cm LA Systolic Diameter MM 3.7 cm LA Ao Ratio MM 1.0 AV Cusp Separation MM 1.6 cm DOPPLER AV Peak Velocity 184.0 cm/s AV Peak Gradient 13.5 mmHg AV Mean Velocity 130.2 cm/s AV Mean Gradient 7.7 mmHg AV Velocity Time Integral 42.9 cm MV Area PHT 3.0 cm??? Mitral E Point Velocity 112.2 cm/s Mitral A Point Velocity 83.1 cm/s Mitral E to A Ratio 1.4 MV Deceleration Time 257.0 ms TR Peak Velocity 304.5 cm/s TR Peak Gradient 37.1 mmHg Right Ventricular Systolic Press 41.5 mmHg FINDINGS Left Ventricle Left ventricular ejection fraction is estimated at 55-60 %. Moderately increased septal wall thickness. Moderately increased posterior wall thickness. Normal left ventricular wall motion. Left ventricular cavity size normal. No obvious regional wall motion abnormalities. Right Ventricle Moderate right ventricular dilatation. Mild pulmonary hypertension. Right Atrium Moderate right atrial dilatation. Left Atrium Moderately increased left atrial diameter. Mitral Valve Mitral valve thickened. Mitral annular calcification. Mild mitral regurgitation. Aortic Valve Trileaflet aortic valve. Diffuse thickening (sclerosis) of the aortic valve cusps without reduced excursion. Aortic valve sclerosis. No aortic regurgitation. Tricuspid Valve Structurally normal tricuspid valve. Mild tricuspid regurgitation. No tricuspid stenosis. Pulmonic Valve No pulmonic stenosis. Structurally normal pulmonic valve. Trace pulmonic regurgitation. Pericardium No pericardial or pleural effusion. Aorta Normal size aortic root and proximal ascending aorta. CONCLUSIONS Normal LV systolic function Aortic sclerosis with no stenosis and no insufficiency Mitral annular calcification Previewed by: Dr. Ángel Cheney MD (Electronically Signed) Final Date: 31 October 2023 16:16
[2023-10-31 16:30] LABS: Glucose,Whole Blood 114 mg/dL (70-110)
--- NOTE | 2023-10-31 18:21 | P.PN ---
Progress Note - Text Progress Note Date: 10/31/23 Chief Complaint: Short of breath This is a pleasant 83-year-old patient who follows with Dr. 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 Chronic stable medical conditions include diabetes, GERD, hypertension, hyperlipidemia, osteoarthritis. No known prior cardiac history. Patient presents to ER with 2 days of unable to breathe. Some edema. Slight cough. No fever no chills. Feeling slight heaviness in the chest. She was found to be in atrial fibrillation with rapid ventricular rate overnight. Started on a Cardizem drip and IV heparin drip. This morning the Cardizem drip taken off. Rate better controlled. Patient on 15 L of nasal cannula. Heart rate this morning in the 90s. October 30: Breathing much better. Patient off oxygen with pulse ox 94% room air. Heart rate down to the 80s. In sinus rhythm. On IV Lasix per cardiology. On IV heparin. Active Medications Aspirin (Aspirin 81 Mg) 81 mg PO DAILY [facility] Last Admin: 10/31/23 08:28 Dose: 81 mg Atorvastatin Calcium (Atorvastatin 40 Mg Tab) 40 mg PO HS [facility] Last Admin: 10/30/23 22:16 Dose: 40 mg Dextrose/Water (Dextrose 50% Syringe 50 Ml) 25 ml IVP PER PROTOCOL PRN; Protocol PRN Reason: Hypoglycemia Dextrose/Water (Dextrose 50% Syringe 50 Ml) 50 ml IVP PER PROTOCOL PRN; Protocol PRN Reason: Hypoglycemia Furosemide (Furosemide 10 Mg/Ml 4 Ml Vial) 40 mg IV Q12HR [facility] Last Admin: 10/31/23 08:28 Dose: 40 mg Heparin Sodium (Porcine) (Heparin Sodium 1,000 Un/Ml (10ml Vl)) 0 unit IV PER PROTOCOL PRN; Protocol PRN Reason: Low PTT Last Admin: 10/30/23 04:55 Dose: 2,025 unit Heparin Sodium/Sodium Chloride (25,000 unit/ Sodium Chloride) 250 mls @ 9.798 mls/hr IV .Q24H [facility]; Protocol Last Titration: 10/31/23 15:31 Dose: 11 units/kg/hr, 8.981 mls/hr Insulin Aspart (Insulin Aspart (Novolog) 100 Unit/Ml Vial) 0 unit SQ AC-TID [facility]; Protocol Last Admin: 10/31/23 17:40 Dose: Not Given Metformin HCl (Metformin 500 Mg Tab) 1,000 mg PO BID [facility] Last Admin: 10/31/23 08:28 Dose: 1,000 mg Metoprolol Tartrate (Metoprolol Tartrate 25 Mg Tab) 25 mg PO BID [facility] Last Admin: 10/31/23 12:08 Dose: 25 mg Morphine Sulfate (Morphine Sulfate 4 Mg/Ml Syringe) 4 mg IV Q4HR PRN PRN Reason: Severe Pain (Scale 7 to 10) Naloxone HCl (Naloxone 0.4 Mg/Ml 1 Ml Vial) 0.2 mg IV Q2M PRN PRN Reason: Opioid Reversal Ondansetron HCl (Ondansetron 4 Mg/2 Ml Vial) 4 mg IVP Q8HR PRN PRN Reason: Nausea And Vomiting Social history: Lives alone. Patient started smoking at age of 20 stopped in 2005. Smoked about three-quarter pack a day. Alcohol rarely. Physical examination: VITAL SIGNS: 97.8, 87, 18, 139 x 80, 94% room air GENERAL: BMI 30,. Reclining in bed, breathing better EYES: Pupils equal. Conjunctiva armaan l. HEENT: External appearance of nose and ears normal, oral cavity grossly normal. NECK: JVD possibly raised; masses not palpable. HEART: I first second sound normal; edema better LUNGS: Respiratory rate normal d, decreased breath sounds. ABDOMEN: Soft, nontender, liver spleen not palpable, no masses palpable. PSYCH: Alert and oriented x3; mood and affect armaan l. MUSCULOSKELETAL:No Clubbing/cyanosis;muscles-grossly intact, OA INVESTIGATIONS, reviewed in the clinical context: 2D echocardiogram: EF 55 to 60%. Moderately increased septal wall thickness. And moderately increased posterior wall thickness. Arctic valve sclerosis. December 30, 2023: White count 12.1 hemoglobin 11 platelets 303 sodium 138 potassium 3.7 BUN 28 creatinine 1.01 Troponin I less than 0.012 x 2 EKG tracing personally reviewed by me-atrial fibrillation. Right bundle gaby block. Rate 131 Chest x-ray film personally reviewed by me-cardiomegaly. Pulm edema Assessment plan: -Acute congestive heart failure exacerbation from preserved ejection fraction precipitated by uncontrolled atrial fibrillation. EF not known currently. Causing acute hypoxic respiratory failure: Improving IV Lasix every 12. I's and O's. Cardiology following -Paroxysmal f atrial fibrillation rapid ventricular rate. Now in sinus rhythm. Rate controlled Initially on Cardizem drip. Lopressor 25 mg twice daily. IV heparin. -IV heparin monitoring Follow PTT -Acute hypoxic respiratory failure severe secondary to pulm edema: Corrected Initially on 15 L nasal cannula. -Hyperlipidemia Lipitor 40 mg nightly -Essential hypertension Lopressor 25 mg twice daily -Diabetes mellitus type 2 on oral hypoglycemic Metformin. Diabetic diet. -Primary osteoarthritis Naproxen. Tylenol as needed -DNR Discussed with patient. Continue IV Lasix. Lopressor. Past Medical History Past Medical History: Cancer, Diabetes Mellitus, GERD/Reflux, Hyperlipidemia, Hypertension, Osteoarthritis (OA) Additional Past Medical History / Comment(s): SKIN CANCER History of Any Multi-Drug Resistant Organisms: None Reported Past Surgical History: Appendectomy, Back Surgery, Section, Cho lecystectomy, Hernia Repair, Joint Replacement, Tubal Ligation Additional Past Surgical History / Comment(s): NECK SURGERY, Past Anesthesia/Blood Transfusion Reactions: No Reported Reaction Smoking Status: Former smoker
[2023-10-31 20:12] LABS: Glucose,Whole Blood 155 mg/dL (70-110)
[2023-10-31] MEDS: MAGNESIUM OXIDE 400 MG TAB PO SCH (20:38)
[2023-11-01 06:09] LABS: Glucose,Whole Blood 131 mg/dL (70-110)
--- NOTE | 2023-11-01 08:45 | P.PN ---
Subjective Progress Note Date: 11/01/23 The patient was seen and evaluated. She is feeling better with the shortness of breath has improved which has been maintaining normal sinus mechanism with the echo still pending. She is on IV Lasix and the kidney function seems to be stable. The physical examination is remarkable for mild sinus tachycardia with regular rhythm and clear breathing sounds bilaterally and mild bilateral lower extremities edema November 01, 2023 The patient was seen and evaluated this morning which she is feeling better. The shortness of breath has improved. No pain in the chest. She has been converted to normal sinus mechanism. With that being said I am going to DC Lasix IV and start the patient on oral Lasix and also DC heparin and start the patient on oral anticoagulation and also increase the dose of metoprolol. The physical examination is remarkable for regular rhythm with a soft systolic murmur and clear breathing sounds bilaterally and no edema was noted. The echo showed preserved LV systolic function Assessment Heart failure with preserved ejection fraction Paroxysmal atrial fibrillation currently the patient is in sinus rhythm The multiple comorbid conditions Plan Heparin and start the patient on oral anticoagulation DC Lasix IV and start the patient on oral diuretics Increase the dose of metoprolol Possible discharge in the next 24 hours Objective - Vital Signs Vital signs: Vital Signs Temp 98.2 F 11/01/23 07:40 Pulse 95 11/01/23 07:40 Resp 18 11/01/23 07:40 BP 113/69 11/01/23 07:40 Pulse Ox 93 L 11/01/23 07:40 FiO2 100 10/29/23 20:16 Intake & Output 10/31/23 11/01/23 11/01/23 18:59 06:59 18:59 Intake Total 218.877 615.068 Output Total 900 400 Balance -681.123 215.068 Weight 79.2 kg Intake: IV 10 20 Invasive Line 3 10 20 Intake, IV Titration 90.877 133.068 Amount Heparin Sod,Pork in 0.45% 90.877 133.068 NaCl 25,000 unit In 0.45 % NaCl 1 250ml.bag @ 12 UNITS/KG/HR 9.798 mls/hr IV .Q24H [facility] Rx#: [id number] Oral 118 462 Output: Urine 900 400 Other: Voiding Method Toilet # Voids 2 # Bowel Movements 2 1 - Labs CBC & Chem 7: 10/30/23 04:07 10/30/23 04:07 Labs: Abnormal Lab Results - Last 24 Hours (Table) 10/31/23 10/31/23 10/31/23 Range/Units 07:13 07:13 11:28 APTT (22.0-30.0) sec POC Glucose (mg/dL) 154 H (70-110) mg/dL Hemoglobin A1c 7.5 H (<=6.0) % Magnesium 1.2 L (1.6-2.3) mg/dL 10/31/23 10/31/23 10/31/23 Range/Units 16:22 17:02 20:08 APTT 73.0 H (22.0-30.0) sec POC Glucose (mg/dL) 114 H 155 H (70-110) mg/dL Hemoglobin A1c (<=6.0) % Magnesium (1.6-2.3) mg/dL 11/01/23 Range/Units 06:08 APTT (22.0-30.0) sec POC Glucose (mg/dL) 131 H (70-110) mg/dL Hemoglobin A1c (<=6.0) % Magnesium (1.6-2.3) mg/dL
[2023-11-01] MEDS: FUROSEMIDE 40 MG TAB PO SCH (09:04)
[2023-11-01 10:10] LABS: African American GFR (CKD) 60 (>60 ml/min/1.73 sqM); Anion Gap 11 mmol/L; Blood Urea Nitrogen 16 mg/dL (7-17); Carbon Dioxide 31 mmol/L (22-30); Chloride 97 mmol/L (98-107); Glucose 166 mg/dL (74-99); Non-African American GFR(CKD) 52 (>60 ml/min/1.73 sqM); Potassium 3.2 mmol/L (3.5-5.1); Sodium 139 mmol/L (137-145)
[2023-11-01] MEDS: POTASSIUM CHLORIDE ER 20 MEQ TAB.ER PO STA (11:26)
[2023-11-01] MEDS: APIXABAN 5 MG TAB PO SCH (11:27)
[2023-11-01 11:49] LABS: Glucose,Whole Blood 123 mg/dL (70-110)
--- NOTE | 2023-11-01 13:15 | P.PN ---
Progress Note - Text Progress Note Date: 11/01/23 Chief Complaint: Short of breath This is a pleasant 83-year-old patient who follows with Dr. Xavier London as her PCP and Dr. JOSHUA Garcia her legal consultant. Chronic stable medical conditions include diabetes, GERD, hypertension, hyperlipidemia, osteoarthritis. No known prior cardiac history. Patient presents to ER with 2 days of unable to breathe. Some edema. Slight cough. No fever no chills. Feeling slight heaviness in the chest. She was found to be in atrial fibrillation with rapid ventricular rate overnight. Started on a Cardizem drip and IV heparin drip. This morning the Cardizem drip taken off. Rate better controlled. Patient on 15 L of nasal cannula. Heart rate this morning in the 90s. October 30: Breathing much better. Patient off oxygen with pulse ox 94% room air. Heart rate down to the 80s. In sinus rhythm. On IV Lasix per cardiology. On IV heparin. October 31: Breathing greatly improved. Pulse ox 97%. On room air. Told increase activity. Changed over to oral Lasix. Lopressor dose increased to 50 mg twice daily. Increase activity. Possible discharge tomorrow. Active Medications Apixaban (Apixaban 5 Mg Tab) 5 mg PO BID [facility]; Protocol Last Admin: 11/01/23 11:27 Dose: 5 mg Aspirin (Aspirin 81 Mg) 81 mg PO DAILY [facility] Last Admin: 11/01/23 07:45 Dose: 81 mg Atorvastatin Calcium (Atorvastatin 40 Mg Tab) 40 mg PO HS [facility] Last Admin: 10/31/23 20:39 Dose: 40 mg Dextrose/Water (Dextrose 50% Syringe 50 Ml) 25 ml IVP PER PROTOCOL PRN; Protocol PRN Reason: Hypoglycemia Dextrose/Water (Dextrose 50% Syringe 50 Ml) 50 ml IVP PER PROTOCOL PRN; Protocol PRN Reason: Hypoglycemia Furosemide (Furosemide 40 Mg Tab) 40 mg PO BID@0900,1600 [facility] Last Admin: 11/01/23 09:04 Dose: Not Given Insulin Aspart (Insulin Aspart (Novolog) 100 Unit/Ml Vial) 0 unit SQ AC-TID [facility]; Protocol Last Admin: 11/01/23 12:09 Dose: Not Given Magnesium Oxide (Magnesium Oxide 400 Mg Tab) 400 mg PO BID [facility] Last Admin: 11/01/23 07:45 Dose: 400 mg Metformin HCl (Metformin 500 Mg Tab) 1,000 mg PO BID [facility] Last Admin: 11/01/23 07:45 Dose: 1,000 mg Metoprolol Tartrate (Metoprolol Tartrate 50 Mg Tab) 50 mg PO BID [facility] Morphine Sulfate (Morphine Sulfate 4 Mg/Ml Syringe) 4 mg IV Q4HR PRN PRN Reason: Severe Pain (Scale 7 to 10) Naloxone HCl (Naloxone 0.4 Mg/Ml 1 Ml Vial) 0.2 mg IV Q2M PRN PRN Reason: Opioid Reversal Ondansetron HCl (Ondansetron 4 Mg/2 Ml Vial) 4 mg IVP Q8HR PRN PRN Reason: Nausea And Vomiting Social history: Lives alone. Patient started smoking at age of 20 stopped in 2005. Smoked about three-quarter pack a day. Alcohol rarely. Physical examination: VITAL SIGNS: 97.4, 74, 18, 03/10/1983, 97% room air GENERAL: Sitting edge of the bed, comfortable EYES: Pupils equal. Conjunctiva armaan l. HEENT: External appearance of nose and ears normal, oral cavity grossly normal. NECK: JVD possibly raised; masses not palpable. HEART: I first second sound normal; edema better LUNGS: Respiratory rate normal d, decreased breath sounds. ABDOMEN: Soft, nontender, liver spleen not palpable, no masses palpable. PSYCH: Alert and oriented x3; mood and affect armaan l. MUSCULOSKELETAL:No Clubbing/cyanosis;muscles-grossly intact, OA INVESTIGATIONS, reviewed in the clinical context: October 31: Potassium 3.2 creatinine 0.99 2D echocardiogram: EF 55 to 60%. Moderately increased septal wall thickness. And moderately increased posterior wall thickness. Arctic valve sclerosis. October 30, 2023: White count 12.1 hemoglobin 11 platelets 303 sodium 138 potassium 3.7 BUN 28 creatinine 1.01 Troponin I less than 0.012 x 2 EKG tracing personally reviewed by me-atrial fibrillation. Right bundle gaby block. Rate 131 Chest x-ray film personally reviewed by me-cardiomegaly. Pulm edema Assessment plan: -Acute congestive heart failure exacerbation from preserved ejection fraction precipitated by uncontrolled atrial fibrillation. EF not known currently. Causing acute hypoxic respiratory failure: I much improved IV Lasix every 12. Changed to oral Lasix 40 mg twice daily starting today. Cardiology following. -Paroxysmal f atrial fibrillation rapid ventricular rate. Now in sinus rhythm. Rate controlled Initially on Cardizem drip. Increase Lopressor 50 mg twice daily. IV heparin.-Transition to Eliquis -IV heparin monitoring-discussed -Acute hypoxic respiratory failure severe secondary to pulm edema: Corrected Initially on 15 L nasal cannula. -Hyperlipidemia Lipitor 40 mg nightly -Essential hypertension Lopressor 25 mg twice daily -Diabetes mellitus type 2 on oral hypoglycemic Metformin. Diabetic diet. -Primary osteoarthritis Naproxen. Tylenol as needed -DNR Changed to oral Lasix. Lopressor increased. Increase activity. Probably discharge tomorrow. Eliquis started Past Medical History Past Medical History: Cancer, Diabetes Mellitus, GERD/Reflux, Hyperlipidemia, Hypertension, Osteoarthritis (OA) Additional Past Medical History / Comment(s): SKIN CANCER History of Any Multi-Drug Resistant Organisms: None Reported Past Surgical History: Appendectomy, Back Surgery, Section, Cholecystectomy, Hernia Repair, Joint Replacement, Tubal Ligation Additional Past Surgical History / Comment(s): NECK SURGERY, Past Anesthesia/Blood Transfusion Reactions: No Reported Reaction Smoking Status: Former smoker
[2023-11-01 16:48] LABS: Glucose,Whole Blood 108 mg/dL (70-110)
[2023-11-01] MEDS: METOPROLOL TARTRATE 50 MG TAB PO SCH (20:27)
[2023-11-01 20:31] LABS: Glucose,Whole Blood 125 mg/dL (70-110)
[2023-11-02 04:58] VITALS: RESP 16
[2023-11-02 06:14] LABS: Glucose,Whole Blood 142 mg/dL (70-110)
[2023-11-02 10:16] VITALS: TEMP 98
[2023-11-02 11:10] LABS: Glucose,Whole Blood 123 mg/dL (70-110)
[2023-11-02 11:28] LABS: Basophils # (A) 0.1 k/uL (0-0.2); Basophils % (A) 1 %; Eosinophils # (A) 0.3 k/uL (0-0.7); Eosinophils % (A) 3 %; HCT 37.6 % (34.0-46.0); HGB 12.1 gm/dL (11.4-16.0); Hypochromasia Slight; Lymphocytes # (A) 2.5 k/uL (1.0-4.8); Lymphocytes % (A) 26 %; MCH 27.9 pg (25.0-35.0); MCHC 32.1 g/dL (31.0-37.0); Mean Platelet Volume 7.2; Monocytes # (A) 0.6 k/uL (0-1.0); Monocytes % (A) 6 %; Neutrophils # (A) 5.8 k/uL (1.3-7.7); Neutrophils % (A) 61 %; Platelet Count 299 k/uL (150-450); RBC 4.32 m/uL (3.80-5.40); RDW 14.4 % (11.5-15.5); WBC 9.5 k/uL (3.8-10.6)
[2023-11-02 11:40] LABS: African American GFR (CKD) 57 (>60 ml/min/1.73 sqM); Anion Gap 11 mmol/L; Blood Urea Nitrogen 18 mg/dL (7-17); Calcium 10.1 mg/dL (8.4-10.2); Carbon Dioxide 32 mmol/L (22-30); Chloride 98 mmol/L (98-107); Glucose 123 mg/dL (74-99); Magnesium 1.4 mg/dL (1.6-2.3); Non-African American GFR(CKD) 49 (>60 ml/min/1.73 sqM); Potassium 4.1 mmol/L (3.5-5.1); Sodium 141 mmol/L (137-145)
[2023-11-02] MEDS: DAPAGLIFLOZIN PROPANEDIOL 10 MG TABLET PO SCH (12:49)
--- NOTE | 2023-11-02 14:18 | P.PN ---
Subjective HISTORY OF PRESENT ILLNESS: The patient was seen and evaluated. She is feeling better with the shortness of breath has improved which has been maintaining normal sinus mechanism with the echo still pending. She is on IV Lasix and the kidney function seems to be stable. The physical examination is remarkable for mild sinus tachycardia with regular rhythm and clear breathing sounds bilaterally and mild bilateral lower extremities edema November 01, 2023 The patient was seen and evaluated this morning which she is feeling better. The shortness of breath has improved. No pain in the chest. She has been converted to normal sinus mechanism. With that being said I am going to DC Lasix IV and start the patient on oral Lasix and also DC heparin and start the patient on oral anticoagulation and also increase the dose of metoprolol. The physical examination is remarkable for regular rhythm with a soft systolic murmur and clear breathing sounds bilaterally and no edema was noted. The echo showed preserved LV systolic function 11/02/2023 Patient examined this morning. Patient is sitting up in the chair. Patient currently denies chest pain or pressure. She denies shortness of breath. Vital signs are stable. Telemetry reveals sinus mechanism with heart rates in the 90s. Blood pressure 133/78. PHYSICAL EXAM: VITAL SIGNS: Reviewed. GENERAL: Well-developed in no acute distress. NECK: Supple. No JVD or thyromegaly LUNGS: Respirations even and unlabored. Lungs essentially clear to auscultation bilaterally. HEART: Regular rate and rhythm. S1 and S2 heard. EXTREMITIES: Normal range of motion. No clubbing or cyanosis. Peripheral pulses intact. No lower extremity edema ASSESSMENT: New onset atrial fibrillation with RVR, currently maintaining sinus mechanism Acute heart failure with preserved EF, 55 to 60% Hypertension Hyperlipidemia Hypokalemia Hypomagnesemia Diabetes PLAN: Continue aspirin. Continue anticoagulation with Eliquis Increase metoprolol tartrate to 75 mg twice a day Change Lasix to daily dosing instead of twice daily Check potassium and magnesium. Supplement per protocol Add losartan 12.5 mg daily for optimal blood pressure control Patient may be discharged home this afternoon from a cardiac standpoint She is to follow-up postdischarge with Dr. Garcia Nurse practitioner note has been reviewed by physician. Signing provider agrees with the documented findings, assessment, and plan of care documented by PLAN CHECKER as a scribe. Objective - Vital Signs Vital signs: Vital Signs Temp 98.0 F 11/02/23 08:00 Pulse 73 09/16/24 08:00 Resp 16 11/02/23 08:00 BP 133/78 11/02/23 08:00 Pulse Ox 94 L 11/02/23 08:00 FiO2 100 10/29/23 20:16 Intake & Output 11/01/23 11/02/23 11/02/23 18:59 06:59 18:59 Intake Total 736 360 Output Total 300 Balance 436 360 Weight 78 kg Intake: IV 20 Invasive Line 3 20 Oral 716 360 Output: Urine 300 Other: Voiding Method Toilet Toilet Toilet - Labs CBC & Chem 7: 11/02/23 11:09 11/02/23 11:09 Labs: Abnormal Lab Results - Last 24 Hours (Table) 11/01/23 11/02/23 11/02/23 Range/Units 20:29 06:12 11:07 Carbon Dioxide (22-30) mmol/L BUN (7-17) mg/dL Glucose (74-99) mg/dL POC Glucose (mg/dL) 125 H 142 H 123 H (70-110) mg/dL Magnesium (1.6-2.3) mg/dL 11/02/23 Range/Units 11:09 Carbon Dioxide 32 H (22-30) mmol/L BUN 18 H (7-17) mg/dL Glucose 123 H (74-99) mg/dL POC Glucose (mg/dL) (70-110) mg/dL Magnesium 1.4 L (1.6-2.3) mg/dL
[2023-11-02 14:45] VITALS: BP 120/78; PULSE 57
[2023-11-02] MEDS ORDERED: MAGNESIUM SULFATE-D5W PMX 1 GM in DEXTROSE/WATER 1 100ML.BAG IVPB SCH (15:00)
[2023-11-02] MEDS ORDERED: METOPROLOL TARTRATE 25 MG TAB PO SCH (21:00)
--- NOTE | 2023-11-02 21:44 | P.DS ---
Providers Date of admission: 10/29/23 19:43 Expected date of discharge: 11/02/23 Attending physician: Jeff Parr Consults: 10/29/23 19:40 Consult Physician Routine Consulting Provider: Ward Peoples Consult Reason/Comments: [id number] Do you want consulting provider notified?: Yes Primary care physician: Xavier Hilario [facility] Course: Chief Complaint: Short of breath This is a pleasant 83-year-old patient who follows with Dr. Xavier London as her PCP and Dr. JOSHUA Garcia her oil processing technician. Chronic stable medical conditions include diabetes, GERD, hypertension, hyperlipidemia, osteoarthritis. No known prior cardiac history. Patient presents to ER with 2 days of unable to breathe. Some edema. Slight cough. No fever no chills. Feeling slight heaviness in the chest. She was found to be in atrial fibrillation with rapid ventricular rate overnight. Started on a Cardizem drip and IV heparin drip. This morning the Cardizem drip taken off. Rate better controlled. Patient on 15 L of nasal cannula. Heart rate this morning in the 90s. October 30: Breathing much better. Patient off oxygen with pulse ox 94% room air. Heart rate down to the 80s. In sinus rhythm. On IV Lasix per cardiology. On IV heparin. October 31: Breathing greatly improved. Pulse ox 97%. On room air. Told increase activity. Changed over to oral Lasix. Lopressor dose increased to 50 mg twice daily. Increase activity. Possible discharge tomorrow. November 01: Doing well. In sinus rhythm. Medications reviewed per cardiology. Discussed Discussion and discharge planning more than 35 minutes Social history: Lives alone. Patient started smoking at age of 20 stopped in 2005. Smoked about three-quarter pack a day. Alcohol rarely. Physical examination: VITAL SIGNS: 98, 73, 16, 133 x 78, 94% room air GENERAL: Comfortable EYES: Pupils equal. Conjunctiva armaan l. HEENT: External appearance of nose and ears normal, oral cavity grossly normal. NECK: JVD possibly raised; masses not palpable. HEART: I first second sound normal; edema better LUNGS: Respiratory rate normal d, decreased breath sounds. ABDOMEN: Soft, nontender, liver spleen not palpable, no masses palpable. PSYCH: Alert and oriented x3; mood and affect armaan l. MUSCULOSKELETAL:No Clubbing/cyanosis;muscles-grossly intact, OA INVESTIGATIONS, reviewed in the clinical context: November 01: Potassium 4.1 creatinine 1.04 October 31: Potassium 3.2 creatinine 0.99 2D echocardiogram: EF 55 to 60%. Moderately increased septal wall thickness. And moderately increased posterior wall thickness. Arctic valve sclerosis. October 30, 2023: White count 12.1 hemoglobin 11 platelets 303 sodium 138 potassium 3.7 BUN 28 creatinine 1.01 Troponin I less than 0.012 x 2 EKG tracing personally reviewed by me-atrial fibrillation. Right bundle gaby block. Rate 131 Chest x-ray film personally reviewed by me-cardiomegaly. Pulm edema Assessment plan: -Acute congestive heart failure exacerbation from preserved ejection fraction precipitated by uncontrolled atrial fibrillation. EF not known currently. Causing acute hypoxic respiratory failure: I much improved IV Lasix every 12. Discharged on Lasix 40 mg a day -Paroxysmal f atrial fibrillation rapid ventricular rate. Now in sinus rhythm. Rate controlled Initially on Cardizem drip. Increase Lopressor 75 mg twice daily. Eliquis -IV heparin monitoring-discussed -Acute hypoxic respiratory failure severe secondary to pulm edema: Corrected Initially on 15 L nasal cannula. -Hyperlipidemia Lipitor 40 mg nightly -Essential hypertension Lopressor 75 mg twice daily -Diabetes mellitus type 2 on oral hypoglycemic Metformin. Diabetic diet. -Primary osteoarthritis Naproxen-discontinued. Tylenol as needed -DNR Disposition: Home Past Medical History Past Medical History: Cancer, Diabetes Mellitus, GERD/Reflux, Hyperlipidemia, Hypertension, Osteoarthritis (OA) Additional Past Medical History / Comment(s): SKIN CANCER History of Any Multi-Drug Resistant Organisms: None Reported Past Surgical History: Appendectomy, Back Surgery, Section, Cholecystectomy, Hernia Repair, Joint Replacement, Tubal Ligation Additional Past Surgical History / Comment(s): NECK SURGERY, Past Anesthesia/Blood Transfusion Reactions: No Reported Reaction Smoking Status: Former smoker Plan - Discharge Summary New Discharge Prescriptions: New Losartan [Cozaar] 12.5 mg PO DAILY #30 tab Furosemide [Lasix] 40 mg PO DAILY #30 tab Apixaban [Eliquis] 5 mg PO BID #60 tab Dapagliflozin Propanediol [Farxiga] 10 mg PO DAILY #30 tab Metoprolol Tartrate [Lopressor] 75 mg PO BID #180 tab Magnesium Oxide [Mag-Ox] 400 mg PO DAILY #30 tab Continue Aspirin 81 mg PO DAILY metFORMIN HCL 1,000 mg PO BID Atorvastatin [Lipitor] 40 mg PO HS Discontinued Metoprolol Tartrate [Lopressor] 100 mg PO DAILY hydroCHLOROthiazide [Hydrodiuril] 25 mg PO DAILY Naproxen 500 mg PO DAILY amLODIPine [Norvasc] 5 mg PO DAILY Metoprolol Tartrate [Lopressor] 50 mg PO W/SUPPER lisinopriL 40 mg PO DAILY Discharge Medication List Aspirin 81 mg PO DAILY 12/14/15 [History] Atorvastatin [Lipitor] 40 mg PO HS 10/29/23 [History] metFORMIN HCL 1,000 mg PO BID 10/29/23 [History] Apixaban [Eliquis] 5 mg PO BID #60 tab 11/02/23 [Rx] Dapagliflozin Propanediol [Farxiga] 10 mg PO DAILY #30 tab 11/02/23 [Rx] Furosemide [Lasix] 40 mg PO DAILY #30 tab 11/02/23 [Rx] Losartan [Cozaar] 12.5 mg PO DAILY #30 tab 11/02/23 [Rx] Magnesium Oxide [Mag-Ox] 400 mg PO DAILY #30 tab 11/02/23 [Rx] Metoprolol Tartrate [Lopressor] 75 mg PO BID #180 tab 11/02/23 [Rx] Follow up Appointment(s)/Referral(s): Nena Garcia MD [STAFF PHYSICIAN] - 11/09/23 3:15 pm Xavier Hilario DO [Primary Care Provider] - 1-2 days Patient Instructions/Handouts: Heart Failure (DC), A-fib (Atrial Fibrillation) (DC) Activity/Diet/Wound Care/Special Instructions: fluid restrict 2000 cc/day Discharge Disposition: HOME SELF-CARE
[2023-11-03] MEDS ORDERED: LOSARTAN 25 MG TAB PO SCH (09:00)
[2023-11-03] MEDS ORDERED: FUROSEMIDE 40 MG TAB PO SCH (09:00)
== END 2023-11-02 14:42 | disposition home or self-care (01) | DRG 291 ==
LOC: EC 19:30 → 3SCARD 19:43
PROVIDERS: ADMIT Hospitalist; ATTEND Hospitalist
DX: I11.0 Hypertensive heart disease with heart failure (principal); I50.31 Acute diastolic (congestive) heart failure; J96.01 Acute respiratory failure with hypoxia; I48.0 Paroxysmal atrial fibrillation; E11.9 Type 2 diabetes mellitus without complications; Z66 Do not resuscitate; E83.42 Hypomagnesemia; E87.6 Hypokalemia; E78.5 Hyperlipidemia, unspecified; M19.91 Primary osteoarthritis, unspecified site; Z85.828 Personal history of other malignant neoplasm of skin; Z87.891 Personal history of nicotine dependence; Z79.01 Long term (current) use of anticoagulants; Z79.82 Long term (current) use of aspirin; Z79.84 Long term (current) use of oral hypoglycemic drugs; Z79.899 Other long term (current) drug therapy
CPT/HCPCS: 71045; 80048; 80053; 83036; 83735; 84100; 84484; 85025; 85730; 93005; 93306; 94640; 96365; 96366; 96367; 96368; 96375; 99291

== ENCOUNTER 2024-04-21 15:16 | Emergency (ER) | payer MEDICARE, BC ==
[2024-04-21 15:21] VITALS: TEMP 97.6
[2024-04-21 15:57] LABS: Basophils % (A) 0 %; Eosinophils # (A) 0.2 k/uL (0-0.7); Eosinophils % (A) 2 %; HCT 37.7 % (34.0-46.0); HGB 11.6 gm/dL (11.4-16.0); Hypochromasia Slight; Lymphocytes # (A) 2.7 k/uL (1.0-4.8); Lymphocytes % (A) 25 %; MCH 26.7 pg (25.0-35.0); MCHC 30.8 g/dL (31.0-37.0); MCV 86.5 fL (80.0-100.0); Mean Platelet Volume 7.6; Monocytes # (A) 0.6 k/uL (0-1.0); Monocytes % (A) 5 %; Neutrophils % (A) 66 %; Platelet Count 341 k/uL (150-450); RBC 4.36 m/uL (3.80-5.40); RDW 15.1 % (11.5-15.5); WBC 10.6 k/uL (3.8-10.6)
[2024-04-21 16:15] LABS: ALT 17 U/L (4-34); AST 26 U/L (14-36); African American GFR (CKD) 65 (>60 ml/min/1.73 sqM); Albumin 4.5 g/dL (3.5-5.0); Alkaline Phosphatase 93 U/L (38-126); Anion Gap 12 mmol/L; Blood Urea Nitrogen 18 mg/dL (7-17); Calcium 10.4 mg/dL (8.4-10.2); Carbon Dioxide 24 mmol/L (22-30); Chloride 104 mmol/L (98-107); Glucose 126 mg/dL (74-99); Magnesium 1.8 mg/dL (1.6-2.3); Non-African American GFR(CKD) 57 (>60 ml/min/1.73 sqM); Potassium 4.1 mmol/L (3.5-5.1); Sodium 140 mmol/L (137-145); Total Bilirubin 0.4 mg/dL (0.2-1.3); Total Protein 8.6 g/dL (6.3-8.2)
--- NOTE | 2024-04-21 16:18 | XR ---
EXAMINATION TYPE: XR chest 2V DATE OF EXAM: 04/21/2024 4:00 PM COMPARISON: Chest radiographs from 10/29/2023 TECHNIQUE: XR chest 2V Frontal and lateral views of the chest. CLINICAL INDICATION:Female, 83 years old with history of exertional dyspnea; FINDINGS: Lungs/Pleura: There is no evidence of pleural effusion, focal consolidation, or pneumothorax. Pulmonary vascularity: Central pulmonary vasculature prominence. Heart/mediastinum: Cardiomediastinal silhouette is enlarged and stable. Atherosclerotic calcificatio ns are seen in the aorta. Musculoskeletal: Multiple level degenerative disc disease changes seen throughout the spine. Partial visualization of lumbar fusion however. Other: Cholecystectomy clips in the right upper quadrant. IMPRESSION: Cardiomegaly with central pulmonary vascular congestion. Correlate BNP for CHF exacerbation. [facility], , 04/21/2024 4:15 PM
[2024-04-21 16:24] LABS: NT-Pro-B-Type Natriuretic Pept 1750 pg/mL
--- NOTE | 2024-04-21 16:31 | ED ---
Arrhythmia/Palpitations HPI - General Chief Complaint: Arrhythmia/Palpitations Stated Complaint: Irreg heart rate,Evan ankle swelling Time Seen by Provider: 04/21/24 15:24 Source: patient Mode of arrival: ambulatory Limitations: no limitations - History of Present Illness Initial Comments: This patient is an 83-year-old woman who presents to have evaluation for a number of symptoms that started last night. The patient states that she was awakened from sleep by pounding heart. Her heart was beating fast and she thinks that it was somewhat irregular as well. She states she has history of atrial fibrillation. She notes that after she was awake for a period of time the palpitations subsided and she was able to get some further rest. Today she notes that she has some dyspnea with exertion and she feels like her bilateral ankles are more swollen than his usual for her. She also is having some generalized weakness. The patient has not noted fever or chills. She is not having a productive cough. She denies having chest pain. No change in urination or bowel movements. MD Complaint: palpitations Onset/Timin -: hour(s) Context: awoke with symptoms Arrhythmia History: atrial fibrillation Associated Symptoms: shortness of breath, other (Weakness) - Related Data Home Medications Medication Instructions Recorded Confirmed Atorvastatin [Lipitor] 40 mg PO HS 10/29/23 04/21/24 Apixaban [Eliquis] 5 mg PO BID-W/MEALS 04/21/24 04/21/24 Empagliflozin [Jardiance] 10 mg PO DIRECTED 04/21/24 04/21/24 Losartan [Cozaar] 50 mg PO DAILY 04/21/24 04/21/24 Metoprolol Tartrate [Lopressor] 50 mg PO BID-W/MEALS 04/21/24 04/21/24 amLODIPine [Norvasc] 5 mg PO DAILY 04/21/24 04/21/24 metFORMIN HCL ER [Glucophage XR] 500 mg PO BID-W/MEALS 04/21/24 04/21/24 Previous Rx's Medication Instructions Recorded Magnesium Oxide [Mag-Ox] 400 mg PO DAILY #30 tab 11/02/23 Furosemide [Lasix] 20 mg PO DAILY #4 tab 04/21/24 Allergies Allergy/AdvReac Type Severity Reaction Status Date / Time ibuprofen [From Motrin] Allergy Rash/Hives Verified 04/21/24 16:24 Review of Systems ROS Statement: Those systems with pertinent positive or pertinent negative responses have been documented in the HPI. ROS Other: All systems not noted in ROS Statement are negative. Constitutional: Reports: weakness. Denies: fever, chills Respiratory: Denies: cough, dyspnea Cardiovascular: Reports: as per HPI, palpitations, dyspnea on exertion, edema. Denies: chest pain, orthopnea, syncope Gastrointestinal: Denies: abdominal pain, nausea, vomiting Genitourinary: Denies: dysuria, hematuria Musculoskeletal: Denies: back pain Skin: Denies: rash Neurological: Denies: headache, weakness, numbness Past Medical History Past Medical History: Atrial Fibrillation, Cancer, Diabetes Mellitus, GERD/Ref lux, Hyperlipidemia, Hypertension, Osteoarthritis (OA) Additional Past Medical History / Comment(s): SKIN CANCER History of Any Multi-Drug Resistant Organisms: None Reported Past Surgical History: Appendectomy, Back Surgery, Section, Cholecystectomy, Hernia Repair, Joint Replacement, Tubal Ligation Additional Past Surgical History / Comment(s): NECK SURGERY, Past Anesthesia/Blood Transfusion Reactions: No Reported Reaction Past Psychological History: Anxiety Past Alcohol Use History: Rare Past Drug Use History: None Reported - Past Family History Sister(s) Family Medical History: Cancer Additional Family Medical History / Comment(s): BREAST CANCER / ANOTHER SISTER HAD LEUKEMIA Son(s) Family Medical History: Cancer Additional Family Medical History / Comment(s): MELENOMA Brother(s) Family Medical History: Cancer Additional Family Medical History / Comment(s): SKIN CANCER General Exam Limitations: no limitations General appearance: alert, in no apparent distress Head exam: Present: atraumatic, normocephalic Eye exam: Present: normal appearance. Absent: scleral icterus, conjunctival injection Neck exam: Present: normal inspection Respiratory exam: Present: normal lung sounds bilaterally. Absent: respiratory distress, wheezes, rales, rhonchi, stridor, accessory muscle use Cardiovascular Exam: Present: regular rate, normal rhythm, normal heart sounds, systolic murmur. Absent: diastolic murmur, rubs, gallop GI/Abdominal exam: Present: soft. Absent: distended, tenderness, guarding, rebound, rigid, mass Extremities exam: Present: normal inspection, normal capillary refill. Absent: pedal edema, calf tenderness Back exam: Present: normal inspection. Absent: CVA tenderness (R), CVA tenderness (L) Neurological exam: Present: alert Skin exam: Present: warm, dry, intact, normal color. Absent: rash Course Vital Signs 04/21/24 04/21/24 15:18 16:06 Temperature 97.6 F Pulse Rate 73 63 Respiratory 20 20 Rate Blood Pressure 229/96 196/78 O2 Sat by Pulse 97 95 Oximetry EKG Findings - EKG Results: EKG: interpreted by ERMD, sinus rhythm (Rhythm appears to be sinus with occasional premature complex. Rate is approximately 62 bpm) - Blocks, [place], Hypertrophy, ST Abn: AV and intraventricular conduction: right bundle branch block (fixed/intermittent, complete/incomplete), left anterior fascicular block Chamber hypertrophy or enlargement: only voltage criteria for left ventricular hypertrophy - UT, Pacemaker, Normal: Myocardial infarction: septal UT (old age or indeterminate) (Possible old septal infarct) Medical Decision Making - Medical Decision Making The patient had chest x-ray that I interpreted as negative for acute infiltrate or pneumothorax. There is vascular congestion consistent with early congestive heart failure. - Lab Data Result diagrams: 04/21/24 15:47 04/21/24 15:47 Lab Results 04/21/24 04/21/24 04/21/24 Range/Units 15:47 15:47 15:47 WBC 10.6 (3.8-10.6) k/uL RBC 4.36 (3.80-5.40) m/uL Hgb 11.6 (11.4-16.0) gm/dL Hct 37.7 (34.0-46.0) % MCV 86.5 (80.0-100.0) fL MCH 26.7 (25.0-35.0) pg MCHC 30.8 L (31.0-37.0) g/dL RDW 15.1 (11.5-15.5) % Plt Count 341 (150-450) k/uL MPV 7.6 Neutrophils % 66 % Lymphocytes % 25 % Monocytes % 5 % Eosinophils % 2 % Basophils % 0 % Neutrophils # 7.0 (1.3-7.7) k/uL Lymphocytes # 2.7 (1.0-4.8) k/uL Monocytes # 0.6 (0-1.0) k/uL Eosinophils # 0.2 (0-0.7) k/uL Basophils # 0.0 (0-0.2) k/uL Hypochromasia Slight Sodium 140 (137-145) mmol/L Potassium 4.1 (3.5-5.1) mmol/L Chloride 104 (98-107) mmol/L Carbon Dioxide 24 (22-30) mmol/L Anion Gap 12 mmol/L BUN 18 H (7-17) mg/dL Creatinine 0.93 (0.52-1.04) mg/dL Est GFR (CKD-EPI)AfAm 65 (>60 ml/min/1.73 sqM) Est GFR (CKD-EPI)NonAf 57 (>60 ml/min/1.73 sqM) Glucose 126 H (74-99) mg/dL Calcium 10.4 H (8.4-10.2) mg/dL Magnesium 1.8 (1.6-2.3) mg/dL Total Bilirubin 0.4 (0.2-1.3) mg/dL AST 26 (14-36) U/L ALT 17 (4-34) U/L Alkaline Phosphatase 93 (38-126) U/L Troponin I <0.012 (0.000-0.034) ng/mL NT-Pro-B Natriuret Pep 1750 pg/mL Total Protein 8.6 H (6.3-8.2) g/dL Albumin 4.5 (3.5-5.0) g/dL Urine Color Urine Appearance (Clear) Urine pH (5.0-8.0) Ur Specific [place] (1.001-1.035) Urine Protein (Negative) Urine Glucose (UA) (Negative) Urine Ketones (Negative) Urine Blood (Negative) Urine Nitrite (Negative) Urine Bilirubin (Negative) Urine Urobilinogen (<2.0) mg/dL Ur Leukocyte Esterase (Negative) Urine RBC (0-5) /hpf Urine WBC (0-5) /hpf Influenza Type A (PCR) (Not Detectd) Influenza Type B (PCR) (Not Detectd) RSV (PCR) (Not Detectd) SARS-CoV-2 (PCR) (Not Detectd) 04/21/24 04/21/24 Range/Units 16:28 17:12 WBC (3.8-10.6) k/uL RBC (3.80-5.40) m/uL Hgb (11.4-16.0) gm/dL Hct (34.0-46.0) % MCV (80.0-100.0) fL MCH (25.0-35.0) pg MCHC (31.0-37.0) g/dL RDW (11.5-15.5) % Plt Count (150-450) k/uL MPV Neutrophils % % Lymphocytes % % Monocytes % % Eosinophils % % Basophils % % Neutrophils # (1.3-7.7) k/uL Lymphocytes # (1.0-4.8) k/uL Monocytes # (0-1.0) k/uL Eosinophils # (0-0.7) k/uL Basophils # (0-0.2) k/uL Hypochromasia Sodium (137-145) mmol/L Potassium (3.5-5.1) mmol/L Chloride (98-107) mmol/L Carbon Dioxide (22-30) mmol/L Anion Gap mmol/L BUN (7-17) mg/dL Creatinine (0.52-1.04) mg/dL Est GFR (CKD-EPI)AfAm (>60 ml/min/1.73 sqM) Est GFR (CKD-EPI)NonAf (>60 ml/min/1.73 sqM) Glucose (74-99) mg/dL Calcium (8.4-10.2) mg/dL Magnesium (1.6-2.3) mg/dL Total Bilirubin (0.2-1.3) mg/dL AST (14-36) U/L ALT (4-34) U/L Alkaline Phosphatase (38-126) U/L Troponin I (0.000-0.034) ng/mL NT-Pro-B Natriuret Pep pg/mL Total Protein (6.3-8.2) g/dL Albumin (3.5-5.0) g/dL Urine Color Colorless Urine Appearance Clear (Clear) Urine pH 6.5 (5.0-8.0) Ur Specific [place] 1.006 (1.001-1.035) Urine Protein 1+ H (Negative) Urine Glucose (UA) 1+ H (Negative) Urine Ketones Negative (Negative) Urine Blood Negative (Negative) Urine Nitrite Negative (Negative) Urine Bilirubin Negative (Negative) Urine Urobilinogen <2.0 (<2.0) mg/dL Ur Leukocyte Esterase Negative (Negative) Urine RBC 1 (0-5) /hpf Urine WBC 2 (0-5) /hpf Influenza Type A (PCR) Not Detected (Not Detectd) Influenza Type B (PCR) Not Detected (Not Detectd) RSV (PCR) Not Detected (Not Detectd) SARS-CoV-2 (PCR) Not Detected (Not Detectd) Disposition Clinical Impression: CHF (congestive heart failure), Hypertension Disposition: HOME SELF-CARE Condition: Good Instructions (If sedation given, give patient instructions): Heart Failure (DC), Chronic Hypertension (DC) Prescriptions: Furosemide [Lasix] 20 mg PO DAILY #4 tab Is patient prescribed a controlled substance at d/c from ED?: No Referrals: Cherrie Moreau MD [Primary Care Provider] - 1-2 days
[2024-04-21 16:49] LABS: Appearance,Urine Clear (Clear); Bilirubin,Urine Negative (Negative); Blood,Urine Negative (Negative); Color,Urine Colorless; Glucose,Urine (UA) 1+ (Negative); Ketones,Urine Negative (Negative); Leukocyte Esterase,Urine Negative (Negative); Nitrite,Urine Negative (Negative); PH, Urine 6.5 (5.0-8.0); Protein,Urine 1+ (Negative); RBC,Urine 1 /hpf (0-5); Specific Gravity,Urine 1.006 (1.001-1.035); Urobilinogen,Urine <2.0 mg/dL (<2.0); WBC,Urine 2 /hpf (0-5)
[2024-04-21] MEDS: FUROSEMIDE 10 MG/ML 2 ML VIAL IV STA (17:08)
[2024-04-21 17:53] LABS: Influenza A Not Detected (Not Detectd); Influenza B Not Detected (Not Detectd); RSV Not Detected (Not Detectd)
[2024-04-21] MEDS: amLODIPine 5 MG TAB PO STA (18:26)
[2024-04-21] MEDS: METOPROLOL TARTRATE 5 MG/5 ML VIAL IVP STA (18:27)
[2024-04-21 19:45] VITALS: RESP 18
[2024-04-21] MEDS: LABETALOL 5 MG/ML VIAL MDV IVP STA (20:23)
[2024-04-21 21:08] VITALS: BP 164/74; PULSE 61
== END 2024-04-21 21:26 | disposition home or self-care (01) ==
LOC: EC 15:16
DX: I11.0 Hypertensive heart disease with heart failure (principal); I50.9 Heart failure, unspecified; I45.19 Other right bundle-branch block
CPT/HCPCS: 36415; 93005; 83880; 80053; 83735; 84484; 85025; 81001; 87636; 71046; 99285; 96374; 96375 ×2; J1940; J1920

== ENCOUNTER 2024-08-06 12:31 | Inpatient (IN) | payer MEDICARE, BC ==
--- NOTE | 2024-08-06 13:11 | ED ---
General Adult HPI - General Chief complaint: Weakness Stated complaint: Weakness Time Seen by Provider: 08/06/24 12:40 Source: patient, RN notes reviewed, old records reviewed Mode of arrival: wheelchair Limitations: no limitations - History of Present Illness Initial comments: This is an 84-year-old female who presents to the emergency department compl aining of generalized weakness and chest pressure. Patient states is not pain but there is a heaviness on her chest. Patient denies radiation of the heaviness. Patient denies any difficulty breathing or shortness of breath. Patient denies any recent fever chills or cough. Patient states occasionally her A-fib kicks in and she can feel it going faster but currently she does not have that complaint. Patient denies any abdominal pain patient has nausea vomiting diarrhea. Patient denies any dysuria hematuria urinary frequency. Patient denies any recent injury or trauma. - Related Data Home Medications Medication Instructions Recorded Confirmed Atorvastatin [Lipitor] 40 mg PO HS 10/29/23 04/21/24 Apixaban [Eliquis] 5 mg PO BID-W/MEALS 04/21/24 04/21/24 Empagliflozin [Jardiance] 10 mg PO DIRECTED 04/21/24 04/21/24 Losartan [Cozaar] 50 mg PO DAILY 04/21/24 04/21/24 Metoprolol Tartrate [Lopressor] 50 mg PO BID-W/MEALS 04/21/24 04/21/24 amLODIPine [Norvasc] 5 mg PO DAILY 04/21/24 04/21/24 metFORMIN HCL ER [Glucophage XR] 500 mg PO BID-W/MEALS 04/21/24 04/21/24 Previous Rx's Medication Instructions Recorded Magnesium Oxide [Mag-Ox] 400 mg PO DAILY #30 tab 11/02/23 Furosemide [Lasix] 20 mg PO DAILY #4 tab 04/21/24 Allergies Allergy/AdvReac Type Severity Reaction Status Date / Time ibuprofen [From Motrin] Allergy Rash/Hives Verified 08/06/24 12:37 Review of Systems ROS Statement: Those systems with pertinent positive or pertinent negative responses have been documented in the HPI. ROS Other: All systems not noted in ROS Statement are negative. Past Medical History Past Medical History: Atrial Fibrillation, Cancer, Diabetes Mellitus, GERD/Refl ux, Hyperlipidemia, Hypertension, Osteoarthritis (OA) Additional Past Medical History / Comment(s): SKIN CANCER History of Any Multi-Drug Resistant Organisms: None Reported Past Surgical History: Appendectomy, Back Surgery, Section, Cholecystectomy, Hernia Repair, Joint Replacement, Tubal Ligation Additional Past Surgical History / Comment(s): NECK SURGERY, Past Anesthesia/Blood Transfusion Reactions: No Reported Reaction Past Psychological History: Anxiety Past Alcohol Use History: Rare Past Drug Use History: None Reported - Past Family History Sister(s) Family Medical History: Cancer Additional Family Medical History / Comment(s): BREAST CANCER / ANOTHER SISTER HAD LEUKEMIA Son(s) Family Medical History: Cancer Additional Family Medical History / Comment(s): MELENOMA Brother(s) Family Medical History: Cancer Additional Family Medical History / Comment(s): SKIN CANCER General Exam - General Exam Comments Initial Comments: GENERAL: Patient is well-developed and well-nourished. Patient is nontoxic and well-hydrated and is in no acute distress. ENT: Neck is soft and supple. No significant lymphadenopathy is noted. Oropharynx is clear. Moist mucous membranes. Neck has full range of motion without eliciting any pain. EYES: The sclera were anicteric and conjunctiva were pink and moist. Extraocular movements were intact and pupils were equal round and reactive to light. Eyelids were unremarkable. PULMONARY: Unlabored respirations. Good breath sounds bilaterally. No audible rales rhonchi or wheezing was noted. CARDIOVASCULAR: Patient has an irregular heartbeat at about 95 beats a minute ABDOMEN: Soft and nontender with normal bowel sounds. No palpable organomegaly was noted. There is no palpable pulsatile mass. SKIN: Skin is clear with no lesions or rashes and otherwise unremarkable. NEUROLOGIC: Patient is alert and oriented x3. Cranial nerves II through XII are grossly intact. Motor and sensory are also intact. Normal speech, volume and content. Symmetrical smile. MUSCULOSKELETAL: Normal extremities with adequate strength and full range of motion. No lower extremity swelling or edema. No calf tenderness. LYMPHATICS: No significant lymphadenopathy is noted PSYCHIATRIC: Normal psychiatric evaluation. 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 EKG shows atrial fibrillation at 98 bpm QRS 151 QT interval 362 QTc of 417. Patient's EKG shows no ST segment elevation. Patient does have a right bundle branch block Was pt. sent in by a medical professional or institution ([facility], CARE PROVIDER, urgent care, hospital, or intermediate...) When possible be specific @ -No Did you speak to anyone other than the patient for history (EMS, parent, family, police, friend...)? What history was obtained from this source @ -No Did you review nursing and triage notes (agree or disagree)? Why? @ -I reviewed and agree with nursing and triage notes Were old charts reviewed (outside hosp., previous admission, EMS record, old E KG, old radiological studies, urgent care reports/EKG's, intermediate records)? Report findings @ -No old charts were reviewed Differential Diagnosis? @ -Differential Chest Pain: Stable Angina, Unstable Angina, STEMI, NSTEMI Aortic Dissection, Pneumothorax, Musculoskeletal, Esophageal Spasm GERD, Cholecystitis, Pancreatitis, Zoster, this is not meant to be an all-inclusive list. Differential Palpitations Ventricular arrhythmias, atrial arrhythmias, myocardial infarction, anemia, thyrotoxicosis, electrolyte imbalance, hypokalemia, pulmonary embolism, pulmonary disease, drugs, alcohol, anxiety, stress.... This is not meant to be an all-inclusive list. EKG interpreted by me (3pts min.). @ -As above X-rays interpreted by me (1pt min.). @ -Chest x-ray shows no acute abnormality CT interpreted by me (1pt min.). @ -None done U/S interpreted by me (1pt. min.). @ -None done What testing was considered but not performed or refused? (CT, X-rays, U/S, labs)? Why? @ -None What meds were considered but not given or refused? Why? @ -None Did you discuss the management of the patient with other professionals (professionals i.e. [facility], CARE PROVIDER, lab, RT, psych nurse, social work case manager, machine designer, teacher, chief merchandising officer, counter caser)? Give summary @ -I spoke with [facility]ist they agreed admit the patient admit the patient wrote admitting orders Was smoking cessation discussed for >3mins.? @ -No Was critical care preformed (if so, how long)? @ -35 minutes Were there social determinants of health that impacted care today? How? (Homelessness, low income, unemployed, alcoholism, drug addiction, transportation, low edu. Level, literacy, decrease access to med. care, [facility], rehab)? @ -No Was there de-escalation of care discussed even if they declined (Discuss DNR or withdrawal of care, Hospice)? DNR status @ -No What co-morbidities impacted this encounter? (DM, HTN, Smoking, COPD, CAD, Cancer, CVA, ARF, Chemo, Hep., AIDS, mental health diagnosis, sleep apnea, morbid obesity)? @ -None Was patient admitted / discharged? Hospital course, mention meds given and route, prescriptions, significant lab abnormalities, going to OR and other pertinent info. @ -Patient was in A-fib and occasionally rapid up to 146 beats a minute so I started the patient on Cardizem drip at 5 mg/h. Patient will have troponins trended. Patient also will get 2 g of magnesium because the magnesium is 1.4. I spoke with [facility] hospitalist I will admit to them with consult to cardiology Undiagnosed new problem with uncertain prognosis? @ -No Drug Therapy requiring intensive monitoring for toxicity (Heparin, Nitro, Insulin, Cardizem)? @ -No Were any procedures done? @ -No Diagnosis/symptom? @ -A-fib with rapid ventricular response Acute, or Chronic, or Acute on Chronic? @ -Acute Uncomplicated (without systemic symptoms) or Complicated (systemic symptoms)? @ -Complicated Side effects of treatment? @ -No Exacerbation, Progression, or Severe Exacerbation? @ -No Poses a threat to life or bodily function? How? (Chest pain, USA, SD, pneumonia, PE, COPD, DKA, ARF, appy, cholecystitis, CVA, Diverticulitis, Homicidal, Suicidal, threat to staff... and all critical care pts) @ -Yes this can lead to poor perfusion and endorgan dysfunction Diagnosis/symptom? @ -Chest pain Acute, or Chronic, or Acute on Chronic? @ -Acute Uncomplicated (without systemic symptoms) or Complicated (systemic symptoms)? @ -Default Side effects of treatment? @ -None Exacerbation, Progression, or Severe Exacerbation] @ -No Poses a threat to life or bodily function? @ -Yes this can lead to an SD and endorgan dysfunction Diagnosis/symptom? @ -Hypomagnesemia Acute, or Chronic, or Acute on Chronic? @ -Acute Uncomplicated (without systemic symptoms) or Complicated (systemic symptoms)? @ -Uncomplicated Side effects of treatment? @ -None Exacerbation, Progression, or Severe Exacerbation] @ -No Poses a threat to life or bodily function? @ -No - Lab Data Result diagrams: 08/06/24 13:26 08/06/24 13:26 Lab Results 08/06/24 08/06/24 08/06/24 Range/Units 13:26 13: 13: WBC 14.53 H (4.50-10.00) 10*3/uL RBC 4.62 (4.10-5.20) 10*6/uL Hgb 13.2 (12.0-15.0) g/dL Hct 39.9 (37.2-46.3) % MCV 86.4 (80.0-97.0) fL MCH 28.6 (27.0-32.0) pg MCHC 33.1 (32.0-37.0) g/dL Plt Count 363 (140-440) 10*3/uL MPV 10.1 (9.5-12.2) fL Immature Gran % (Auto) 0.3 % Neutrophils % 86.0 % Lymphocytes % 8.5 % Monocytes % 4.9 % Eosinophils % 0.1 % Basophils % 0.2 % Immature Gran # 0.05 H (0.00-0.04) 10*3/uL Neutrophils # 12.48 H (1.80-7.70) 10*3/uL Lymphocytes # 1.24 (0.90-5.00) 10*3/uL Monocytes # 0.71 (0.20-1.00) 10*3/uL Eosinophils # 0.02 L (0.04-0.35) 10*3/uL Basophils # 0.03 (0.00-0.10) 10*3/uL PT 12.3 (10.0-12.5) sec INR 1.1 (<1.2) APTT 23.5 (22.0-30.0) sec Sodium 134 L (137-145) mmol/L Potassium 4.4 (3.5-5.1) mmol/L Chloride 99 (98-107) mmol/L Carbon Dioxide 22 (22-30) mmol/L Anion Gap 13 mmol/L BUN 45 H (7-17) mg/dL Creatinine 1.14 H (0.52-1.04) mg/dL Est GFR (CKD-EPI)AfAm 51 (>60 ml/min/1.73 sqM) Est GFR (CKD-EPI)NonAf 44 (>60 ml/min/1.73 sqM) Glucose 201 H (74-99) mg/dL Calcium 10.4 H (8.4-10.2) mg/dL Magnesium 1.4 L (1.6-2.3) mg/dL Total Bilirubin 0.5 (0.2-1.3) mg/dL AST 20 (14-36) U/L ALT 14 (4-34) U/L Alkaline Phosphatase 69 (38-126) U/L Troponin I (0.000-0.034) ng/mL Total Protein 7.0 (6.3-8.2) g/dL Albumin 4.0 (3.5-5.0) g/dL Urine Color Urine Appearance (Clear) Urine pH (5.0-8.0) Ur Specific [place] (1.001-1.035) Urine Protein (Negative) Urine Glucose (UA) (Negative) Urine Ketones (Negative) Urine Blood (Negative) Urine Nitrite (Negative) Urine Bilirubin (Negative) Urine Urobilinogen (<2.0) mg/dL Ur Leukocyte Esterase (Negative) Urine RBC (0-5) /hpf Urine WBC (0-5) /hpf Ur Squamous Epith Cells (0-4) /hpf Urine Bacteria (None) /hpf Urine Mucus (None) /hpf 08/06/24 08/06/24 Range/Units 13:26 13:27 WBC (4.50-10.00) 10*3/uL RBC (4.10-5.20) 10*6/uL Hgb (12.0-15.0) g/dL Hct (37.2-46.3) % MCV (80.0-97.0) fL MCH (27.0-32.0) pg MCHC (32.0-37.0) g/dL Plt Count (140-440) 10*3/uL MPV (9.5-12.2) fL Immature Gran % (Auto) % Neutrophils % % Lymphocytes % % Monocytes % % Eosinophils % % Basophils % % Immature Gran # (0.00-0.04) 10*3/uL Neutrophils # (1.80-7.70) 10*3/uL Lymphocytes # (0.90-5.00) 10*3/uL Monocytes # (0.20-1.00) 10*3/uL Eosinophils # (0.04-0.35) 10*3/uL Basophils # (0.00-0.10) 10*3/uL PT (10.0-12.5) sec INR (<1.2) APTT (22.0-30.0) sec Sodium (137-145) mmol/L Potassium (3.5-5.1) mmol/L Chloride (98-107) mmol/L Carbon Dioxide (22-30) mmol/L Anion Gap mmol/L BUN (7-17) mg/dL Creatinine (0.52-1.04) mg/dL Est GFR (CKD-EPI)AfAm (>60 ml/min/1.73 sqM) Est GFR (CKD-EPI)NonAf (>60 ml/min/1.73 sqM) Glucose (74-99) mg/dL Calcium (8.4-10.2) mg/dL Magnesium (1.6-2.3) mg/dL Total Bilirubin (0.2-1.3) mg/dL AST (14-36) U/L ALT (4-34) U/L Alkaline Phosphatase (38-126) U/L Troponin I 0.030 (0.000-0.034) ng/mL Total Protein (6.3-8.2) g/dL Albumin (3.5-5.0) g/dL Urine Color Light Yellow Urine Appearance Clear (Clear) Urine pH 5.5 (5.0-8.0) Ur Specific [place] 1.017 (1.001-1.035) Urine Protein 1+ H (Negative) Urine Glucose (UA) Negative (Negative) Urine Ketones Negative (Negative) Urine Blood Negative (Negative) Urine Nitrite Negative (Negative) Urine Bilirubin Negative (Negative) Urine Urobilinogen <2.0 (<2.0) mg/dL Ur Leukocyte Esterase Negative (Negative) Urine RBC 1 (0-5) /hpf Urine WBC 3 (0-5) /hpf Ur Squamous Epith Cells <1 (0-4) /hpf Urine Bacteria Rare H (None) /hpf Urine Mucus Rare H (None) /hpf Disposition Clinical Impression: Hypomagnesemia, Chest pain, Atrial fibrillation with RVR Disposition: ADMITTED IP TO THIS HOSP Referrals: Cherrie Moreau MD [Primary Care Provider] - 1-2 days Time of Disposition: 14:30
--- NOTE | 2024-08-06 13:46 | XR ---
Chest, 2 view. CLINICAL INDICATION: Female, 84 years old with history of Weakness COMPARISON: 04/21/2024 TECHNIQUE: PA and lateral views the chest are obtained. FINDINGS: The lungs are clear and there is no consolidative or interstitial opacity. There is no pleural effusion or pneumothorax. The heart, pulmonary vasculature, mediastinum and kaylyn appear normal. The osseous structures are intact. IMPRESSION: No significant abnormality seen. No acute cardiopulmonary disease. [facility], , 08/06/2024 1:44 PM
[2024-08-06 13:58] LABS: Basophils # (A) 0.03 10*3/uL (0.00-0.10); Basophils % (A) 0.2 %; Eosinophils # (A) 0.02 10*3/uL (0.04-0.35); Eosinophils % (A) 0.1 %; HCT 39.9 % (37.2-46.3); HGB 13.2 g/dL (12.0-15.0); Lymphocytes # (A) 1.24 10*3/uL (0.90-5.00); Lymphocytes % (A) 8.5 %; MCH 28.6 pg (27.0-32.0); MCHC 33.1 g/dL (32.0-37.0); MCV 86.4 fL (80.0-97.0); Mean Platelet Volume 10.1 fL (9.5-12.2); Monocytes # (A) 0.71 10*3/uL (0.20-1.00); Monocytes % (A) 4.9 %; Neutrophils # (A) 12.48 10*3/uL (1.80-7.70); Platelet Count 363 10*3/uL (140-440); RBC 4.62 10*6/uL (4.10-5.20); RDW 14.1 % (11.5-14.5); WBC 14.53 10*3/uL (4.50-10.00)
[2024-08-06 14:12] LABS: INR 1.1 (<1.2); Partial Thromboplastin Time 23.5 sec (22.0-30.0); Prothrombin Time 12.3 sec (10.0-12.5)
[2024-08-06 14:13] LABS: African American GFR (CKD) 51 (>60 ml/min/1.73 sqM); Anion Gap 13 mmol/L; Blood Urea Nitrogen 45 mg/dL (7-17); Carbon Dioxide 22 mmol/L (22-30); Chloride 99 mmol/L (98-107); Glucose 201 mg/dL (74-99); Potassium 4.4 mmol/L (3.5-5.1); Sodium 134 mmol/L (137-145)
[2024-08-06 14:14] LABS: ALT 14 U/L (4-34); AST 20 U/L (14-36); Alkaline Phosphatase 69 U/L (38-126); Calcium 10.4 mg/dL (8.4-10.2); Magnesium 1.4 mg/dL (1.6-2.3); Non-African American GFR(CKD) 44 (>60 ml/min/1.73 sqM); Total Bilirubin 0.5 mg/dL (0.2-1.3)
[2024-08-06 14:18] LABS: Appearance,Urine Clear (Clear); Bacteria,Urine Rare /hpf; Bilirubin,Urine Negative (Negative); Blood,Urine Negative (Negative); Color,Urine Light Yellow; Glucose,Urine (UA) Negative (Negative); Ketones,Urine Negative (Negative); Leukocyte Esterase,Urine Negative (Negative); Mucus,Urine Rare /hpf; Nitrite,Urine Negative (Negative); PH, Urine 5.5 (5.0-8.0); Protein,Urine 1+ (Negative); RBC,Urine 1 /hpf (0-5); Specific Gravity,Urine 1.017 (1.001-1.035); Squamous Epithelial Cell,Urine <1 /hpf (0-4); Urobilinogen,Urine <2.0 mg/dL (<2.0); WBC,Urine 3 /hpf (0-5)
[2024-08-06] MEDS ORDERED: NITROGLYCERIN SL TABS 0.4 MG TAB SUBLINGUAL PRN (14:30)
[2024-08-06] MEDS: MAGNESIUM SULFATE-D5W PMX 1 GM in DEXTROSE/WATER 1 100ML.BAG IVPB ONE (14:57)
[2024-08-06] MEDS: ASPIRIN 81 MG PO STA (14:58)
[2024-08-06] MEDS: DILTIAZEM 125 MG in DEXTROSE 5% IN WATER 100 ML IV SCH (14:58)
[2024-08-06] MEDS: NITROGLYCERIN OINT 1 INCH/GM PACKET TOPICAL SCH (17:48)
[2024-08-06] MEDS: SODIUM CHLORIDE 0.9% 1,000 ML IV SCH (17:48)
[2024-08-06] MEDS ORDERED: FUROSEMIDE 40 MG TAB PO PRN (21:51)
[2024-08-07 06:16] LABS: Basophils # (A) 0.02 10*3/uL (0.00-0.10); Basophils % (A) 0.2 %; Eosinophils # (A) 0.16 10*3/uL (0.04-0.35); Eosinophils % (A) 1.5 %; HCT 37.3 % (37.2-46.3); HGB 11.9 g/dL (12.0-15.0); Lymphocytes # (A) 2.36 10*3/uL (0.90-5.00); Lymphocytes % (A) 22.1 %; MCH 28.2 pg (27.0-32.0); MCHC 31.9 g/dL (32.0-37.0); MCV 88.4 fL (80.0-97.0); Mean Platelet Volume 9.4 fL (9.5-12.2); Monocytes # (A) 1.05 10*3/uL (0.20-1.00); Monocytes % (A) 9.8 %; Neutrophils # (A) 7.05 10*3/uL (1.80-7.70); Neutrophils % (A) 65.9 %; Platelet Count 303 10*3/uL (140-440); RBC 4.22 10*6/uL (4.10-5.20); RDW 14.3 % (11.5-14.5); WBC 10.69 10*3/uL (4.50-10.00)
[2024-08-07 06:38] LABS: African American GFR (CKD) 48 (>60 ml/min/1.73 sqM); Anion Gap 9 mmol/L; Blood Urea Nitrogen 41 mg/dL (7-17); Calcium 9.9 mg/dL (8.4-10.2); Carbon Dioxide 27 mmol/L (22-30); Chloride 100 mmol/L (98-107); Glucose 126 mg/dL (74-99); Non-African American GFR(CKD) 41 (>60 ml/min/1.73 sqM); Potassium 4.3 mmol/L (3.5-5.1); Sodium 136 mmol/L (137-145)
--- NOTE | 2024-08-07 09:20 | P.HPIM ---
History of Present Illness H&P Date: 08/06/24 Chief Complaint: Weakness 84-year-old female, history of hypertension, hyperlipidemia, diabetes mellitus, atrial fibrillation, who presents to the emergency department complaining of generalized weakness and chest pressure. Patient states is not pain but there is a heaviness on her chest. Patient denies radiation of the heaviness. Patient denies any difficulty breathing or shortness of breath. Patient denies any recent fever chills or cough. Patient states occasionally her A-fib kicks in and she can feel it going faster but currently she does not have that complai nt. Patient denies any abdominal pain patient has nausea vomiting diarrhea. Patient denies any dysuria hematuria urinary frequency. Patient denies any recent injury or trauma. Blood work reveals WBC of 14.3, hemoglobin of 13.1 platelet count of 363, sodium 135, potassium 4.4, BUN/creatinine of 45/1.14, magnesium 1.4 troponin 0.030 UA reveals rare bacteria, leukocyte Estrace and nitrates negative EKG completed in ED revealed atrial fibrillation with RVR with heart rate of 146, patient was placed on IV Cardizem infusion, magnesium sulfate 2 g IV x 1 for magnesium of 1.4 and is being admitted for further cardiology evaluation -Chest x-ray shows no acute abnormality EKG shows atrial fibrillation at 98 bpm QRS 151 QT interval 362 QTc of 417. Patient's EKG shows no ST segment elevation. Patient does have a right bundle branch block Review of Systems REVIEW OF SYSTEMS: CONSTITUTIONAL: No fever, no malaise, no fatigue. HEENT: No recent visual problems or hearing problems. Denied any sore throat. CARDIOVASCULAR: No chest pain, orthopnea, PND, no palpitations, no syncope. PULMONARY: No shortness of breath, no cough, no hemoptysis. GASTROINTESTINAL: No diarrhea, no nausea, no vomiting, no abdominal pain. NEUROLOGICAL: No headaches, no weakness, no numbness. HEMATOLOGICAL: Denies any bleeding or petechiae. GENITOURINARY: Denies any burning micturition, frequency, or urgency. MUSCULOSKELETAL/RHEUMATOLOGICAL: Denies any joint pain, swelling, or any muscle pain. ENDOCRINE: Denies any polyuria or polydipsia. The rest of the 14-point review of systems is negative. Past Medical History Past Medical History: Atrial Fibrillation, Cancer, Diabetes Mellitus, GERD/Reflux, Hyperlipidemia, Hypertension, Osteoarthritis (OA) Additional Past Medical History / Comment(s): SKIN CANCER History of Any Multi-Drug Resistant Organisms: None Reported Past Surgical History: Appendectomy, Back Surgery, Section, Cholecystectomy, Hernia Repair, Joint Replacement, Tubal Ligation Additional Past Surgical History / Comment(s): NECK SURGERY, Past Anesthesia/Blood Transfusion Reactions: No Reported Reaction Past Psychological History: Anxiety Past Alcohol Use History: Rare Past Drug Use History: None Reported - Past Family History Sister(s) Family Medical History: Cancer Additional Family Medical History / Comment(s): BREAST CANCER / ANOTHER SISTER HAD LEUKEMIA Son(s) Family Medical History: Cancer Additional Family Medical History / Comment(s): MELENOMA Brother(s) Family Medical History: Cancer Additional Family Medical History / Comment(s): SKIN CANCER Medications and Allergies Home Medications Medication Instructions Recorded Confirmed Type Atorvastatin [Lipitor] 40 mg PO HS 10/29/23 08/06/24 History Apixaban [Eliquis] 5 mg PO BID-W/MEALS 04/21/24 08/06/24 History metFORMIN HCL ER [Glucophage XR] 500 mg PO BID-W/MEALS 04/21/24 08/06/24 History Amiodarone [Cordarone] 200 mg PO DAILY 08/06/24 08/06/24 History DULoxetine HCL [Cymbalta] 30 mg PO DAILY 08/06/24 08/06/24 History Furosemide [Lasix] 40 mg PO DAILY PRN 08/06/24 08/06/24 History Magnesium Oxide [Mag-Ox] 400 mg PO HS 08/06/24 08/06/24 History Metoprolol Tartrate [Lopressor] 50 mg PO DAILY 08/06/24 08/06/24 History amLODIPine [Norvasc] 10 mg PO DAILY 08/06/24 08/06/24 History lisinopriL [Zestril] 20 mg PO DAILY 08/06/24 08/06/24 History ondansetron HCL [Zofran] 8 mg PO Q8H PRN 08/06/24 08/06/24 History predniSONE 10 - 20 mg PO DIRECTED 08/06/24 08/06/24 History Allergies Allergy/AdvReac Type Severity Reaction Status Date / Time ibuprofen [From Motrin] Allergy Rash/Hives Verified 08/06/24 18:25 Physical Exam Vitals: Vital Signs Temp Pulse Pulse Resp BP Pulse Ox 08/06/24 15:37 60 19 106/62 94 L 08/06/24 15:16 70 18 110/61 93 L 08/06/24 14:55 122 H 18 90/76 95 08/06/24 14:10 106 H 18 107/91 96 08/06/24 14:03 130 H 08/06/24 12:33 98.2 F 68 16 117/68 96 Intake and Output 08/06/24 08/06/24 08/06/24 06:59 14:59 22:59 Intake Total 4.917 Balance 4.917 Intake: Intake, IV Titration 4.917 Amount Diltiazem 125 mg In 4.917 Dextrose 5% in Water 100 ml @ 5 MG/HR 5 mls/hr IV .Q24H [facility] Rx#:[id number] Other: Weight 69.4 kg GENERAL:Patient is well-developed and well-nourished. Patient is nontoxic and well-hydrated and is in no acute distress. ENT:Neck is soft and supple. No significant lymphadenopathy is noted. Vic pharynx is clear. Moist mucous membranes. Neck has full range of motion without eliciting any pain. EYES:The sclera were anicteric and conjunctiva were pink and moist. Extraocular movements were intact and pupils were equal round and reactive to light. Eyelids were unremarkable. PULMONARY:Unlabored respirations. Good breath sounds bilaterally. No audible rales rhonchi or wheezing was noted. CARDIOVASCULAR:Patient has an irregular heartbeat at about 95 beats a minute ABDOMEN:Soft and nontender with normal bowel sounds. No palpable organomegaly was noted. There is no palpable pulsatile mass. SKIN:Skin is clear with no lesions or rashes and otherwise unremarkable. NEUROLOGIC:Patient is alert and oriented x3. Cranial nerves II through XII are grossly intact. Motor and sensory are also intact. Normal speech, volume and content. Symmetrical smile. MUSCULOSKELETAL:Normal extremities with adequate strength and full range of motion. No lower extremity swelling or edema. No calf tenderness. PSYCHIATRIC:Normal psychiatric evaluation. Results CBC & Chem 7: 08/07/24 05:56 08/07/24 05:56 Labs: Abnormal Lab Results - Last 24 Hours (Table) 08/06/24 08/06/24 08/06/24 Range/Units 13:26 13:26 13:26 WBC 14.53 H (4.50-10.00) 10*3/uL Immature Gran # 0.05 H (0.00-0.04) 10*3/uL Neutrophils # 12.48 H (1.80-7.70) 10*3/uL Eosinophils # 0.02 L (0.04-0.35) 10*3/uL Sodium 134 L (137-145) mmol/L BUN 45 H (7-17) mg/dL Creatinine 1.14 H (0.52-1.04) mg/dL Glucose 201 H (74-99) mg/dL Plasma Lactic Acid Juan 2.4 H* (0.7-2.0) mmol/L Calcium 10.4 H (8.4-10.2) mg/dL Magnesium 1.4 L (1.6-2.3) mg/dL Urine Protein (Negative) Urine Bacteria (None) /hpf Urine Mucus (None) /hpf 08/06/24 Range/Units 13:27 WBC (4.50-10.00) 10*3/uL Immature Gran # (0.00-0.04) 10*3/uL Neutrophils # (1.80-7.70) 10*3/uL Eosinophils # (0.04-0.35) 10*3/uL Sodium (137-145) mmol/L BUN (7-17) mg/dL Creatinine (0.52-1.04) mg/dL Glucose (74-99) mg/dL Plasma Lactic Acid Juan (0.7-2.0) mmol/L Calcium (8.4-10.2) mg/dL Magnesium (1.6-2.3) mg/dL Urine Protein 1+ H (Negative) Urine Bacteria Rare H (None) /hpf Urine Mucus Rare H (None) /hpf Assessment and Plan Assessment: 1. Atrial fibrillation with RVR; patient remains on IV Cardizem infusion; we will continue with home dose of amiodarone and metoprolol; continue Eliquis - Cardiology to evaluate and make further recommendation 2. Acute renal injury; BUNs/creatinine elevated; patient received IV fluids in ED; will maintain maintenance fluid and monitor strict STEPHANI's, daily weights, renal function electrolytes; avoid nephrotoxins and hypotension 3. Hypomagnesemia; supplemented in ED; we will monitor electrolytes and for make further recommendations 4. Leukocytosis; no obvious source of infection; patient currently afebrile; will monitor CBC 5. Hypertension; Norvasc 10 mg daily; lisinopril 20 mg daily; metoprolol 50 mg daily 6. Hyperlipidemia; Lipitor 40 mg p.o. nightly 7. Diabetes mellitus without long-term insulin use; patient uses metformin 500 mg twice daily; monitor Accu-Cheks q. CHS with insulin sliding scale DVT prophylaxis; SCDs/Eliquis CODE STATUS; full code
[2024-08-07] MEDS: DULoxetine HCL 30 MG CAPSULE.DR PO SCH (10:07)
[2024-08-07] MEDS: metFORMIN 500 MG TAB PO SCH (10:07)
[2024-08-07] MEDS: AMIODARONE 200 MG TAB PO SCH (10:07)
[2024-08-07] MEDS: amLODIPine 10 MG TAB PO SCH (10:08)
[2024-08-07] MEDS: lisinopriL 20 MG TAB PO SCH (10:08)
[2024-08-07] MEDS: APIXABAN 5 MG TAB PO SCH (10:09)
[2024-08-07] MEDS: METOPROLOL TARTRATE 50 MG TAB PO SCH (10:09)
[2024-08-07] MEDS: ASPIRIN 325 MG TAB PO SCH (10:09)
[2024-08-07 13:18] LABS: Chol/HDL Ratio 2.77 Ratio; LDL Cholesterol,Calculated 48.1 mg/dL (0.0-131.0)
--- NOTE | 2024-08-07 13:19 | P.CRDCN ---
History of Present Illness Consult date: 08/07/24 History of present illness: HISTORY OF PRESENTING ILLNESS: Previously known to Dr. Garcia and Dr. Vasques Was recently at [facility] for temporal artery biopsy. During that stay she had atrial fibrillation with RVR along with fluctuating blood pressure. On discharge she was discharged home Eliquis 5 twice daily, amiodarone 200 daily, amlodipine 10, lisinopril 40. Labs shows hemoglobin 9.9, BUN 45, creatinine 1.14. Repeat is 1.19, magnesium was 1.4, TSH was 1.6 EKG shows atrial fibrillation , right bundle branch block, heart rate 98 bpm Prior cardiac testing: recent echo from [facility] shows EF of 55, moderate to severe pulmonary hypertension, moderate TR, mild MR REVIEW OF SYSTEMS: 14 point review of system is negative except what is mentioned above in HPI. PHYSICAL EXAMINATION: Neck: Brisk carotid upstroke, no jugular venous distention. Lungs: Clear to auscultation. Heart: Regular rate and rhythm, mild systolic murmur audible Abdomen: Soft nontender, positive bowel sounds. Extremities: No edema, intact distal pulses. Neuro: Alert, oritented, no focal deficits. Detailed neuro exam was not performed. ASSESSMENT: # Atrial fibrillation with RVR with symptoms of fatigue, currently resolved currently sinus rhythm # Essential hypertension with prior history of fluctuating blood pressure # Type 2 diabetes # Dyslipidemia # Hypertension # RBBB # Hypomagnesemia PLAN: Hold lisinopril as BP is low and mild GANESH Continue amiodarone and Eliquis and amlodipine Monitor electrolytes and kidney function telemetry and blood pressure tomorrow If appropriate, can be discharged from cardiovascular standpoint No need for repeat echocardiogram as recent echo from [facility] shows EF of 55, moderate to severe pulmonary hypertension, moderate TR, mild MR Consider outpatient SGLT2 for elevated NT-proBNP Elvin Huynh MD, FACC, RPVI Thank you for allowing [facility] to participate in this patient's care. Feel free to reach out in case of any followup questions. Past Medical History Past Medical History: Atrial Fibrillation, Cancer, Diabetes Mellitus, GERD/Reflux, Hyperlipidemia, Hypertension, Osteoarthritis (OA) Additional Past Medical History / Comment(s): SKIN CANCER History of Any Multi-Drug Resistant Organisms: None Reported Past Surgical History: Appendectomy, Back Surgery, Section, Cholecystectomy, Hernia Repair, Joint Replacement, Tubal Ligation Additional Past Surgical History / Comment(s): NECK SURGERY, Past Anesthesia/Blood Transfusion Reactions: No Reported Reaction Past Psychological History: Anxiety Past Alcohol Use History: Rare Past Drug Use History: None Reported - Past Family History Sister(s) Family Medical History: Cancer Additional Family Medical History / Comment(s): BREAST CANCER / ANOTHER SISTER HAD LEUKEMIA Son(s) Family Medical History: Cancer Additional Family Medical History / Comment(s): MELENOMA Brother(s) Family Medical History: Cancer Additional Family Medical History / Comment(s): SKIN CANCER Medications and Allergies Home Medications Medication Instructions Recorded Confirmed Type Atorvastatin [Lipitor] 40 mg PO HS 10/29/23 08/06/24 History Apixaban [Eliquis] 5 mg PO BID-W/MEALS 04/21/24 08/06/24 History metFORMIN HCL ER [Glucophage XR] 500 mg PO BID-W/MEALS 04/21/24 08/06/24 History Amiodarone [Cordarone] 200 mg PO DAILY 08/06/24 08/06/24 History DULoxetine HCL [Cymbalta] 30 mg PO DAILY 08/06/24 08/06/24 History Furosemide [Lasix] 40 mg PO DAILY PRN 08/06/24 08/06/24 History Magnesium Oxide [Mag-Ox] 400 mg PO HS 08/06/24 08/06/24 History Metoprolol Tartrate [Lopressor] 50 mg PO DAILY 08/06/24 08/06/24 History amLODIPine [Norvasc] 10 mg PO DAILY 08/06/24 08/06/24 History lisinopriL [Zestril] 20 mg PO DAILY 08/06/24 08/06/24 History ondansetron HCL [Zofran] 8 mg PO Q8H PRN 08/06/24 08/06/24 History predniSONE 10 - 20 mg PO DIRECTED 08/06/24 08/06/24 History Allergies Allergy/AdvReac Type Severity Reaction Status Date / Time ibuprofen [From Motrin] Allergy Rash/Hives Verified 08/06/24 18:25 Physical Exam Vitals: Vital Signs Temp Pulse Pulse Resp BP Pulse Ox 08/07/24 10:05 63 98 08/07/24 07:49 15 08/07/24 04:21 52 L 16 97/57 97 06/22/25 02:39 59 L 16 103/64 97 08/07/24 00:17 50 L 16 98/63 97 08/06/24 23:07 81 16 98/61 08/06/24 19:57 97.7 F 69 18 103/69 99 08/06/24 17:49 69 17 107/67 99 08/06/24 15:37 60 19 106/62 94 L 08/06/24 15:16 70 18 110/61 93 L 08/06/24 14:55 122 H 18 90/76 95 08/06/24 14:10 106 H 18 107/91 96 08/06/24 14:03 130 H Intake and Output 08/06/24 08/07/24 08/07/24 22:59 06:59 14:59 Intake Total 4.917 Balance 4.917 Intake: Intake, IV Titration 4.917 Amount Diltiazem 125 mg In 4.917 Dextrose 5% in Water 100 ml @ 5 MG/HR 5 mls/hr IV .Q24H [facility] Rx#:[id number] Results 08/07/24 05:56 08/07/24 05:56 Cardiac Enzymes 08/06/24 08/06/24 08/06/24 Range/Units 13:26 13:26 15:56 AST 20 (14-36) U/L Troponin I 0.030 0.029 (0.000-0.034) ng/mL 08/06/24 Range/Units 20:42 AST (14-36) U/L Troponin I 0.031 (0.000-0.034) ng/mL Coagulation 08/06/24 Range/Units 13:26 PT 12.3 (10.0-12.5) sec APTT 23.5 (22.0-30.0) sec Lipids 08/07/24 Range/Units 05:56 Triglycerides 162.00 H (0.00-149.00) mg/dL Cholesterol 126.00 (0.00-200.00) mg/dL HDL Cholesterol 45.50 (40.00-60.00) mg/dL Cholesterol/HDL Ratio 2.77 Ratio CBC 08/06/24 08/07/24 Range/Units 13:26 05:56 WBC 14.53 H 10.69 H (4.50-10.00) 10*3/uL RBC 4.62 4.22 (4.10-5.20) 10*6/uL Hgb 13.2 11.9 L (12.0-15.0) g/dL Hct 39.9 37.3 (37.2-46.3) % Plt Count 363 303 (140-440) 10*3/uL Comprehensive Metabolic Panel 08/06/24 08/07/24 Range/Units 13:26 05:56 Sodium 134 L 136 L (137-145) mmol/L Potassium 4.4 4.3 (3.5-5.1) mmol/L Chloride 99 100 (98-107) mmol/L Carbon Dioxide 22 27 (22-30) mmol/L BUN 45 H 41 H (7-17) mg/dL Creatinine 1.14 H 1.19 H (0.52-1.04) mg/dL Glucose 201 H 126 H (74-99) mg/dL Calcium 10.4 H 9.9 (8.4-10.2) mg/dL AST 20 (14-36) U/L ALT 14 (4-34) U/L Alkaline Phosphatase 69 (38-126) U/L Total Protein 7.0 (6.3-8.2) g/dL Albumin 4.0 (3.5-5.0) g/dL Current Medications Generic Name Dose Route Start Last Admin Trade Name Freq PRN Reason Stop Dose Admin Hydrocodone Bitart/Acetaminophen 1 each 08/07/24 11:25 Hydrocodone/Apap 5-325mg 1 Each Tab PO Q6HR PRN Pain Amiodarone HCl 200 mg 08/07/24 09:00 08/07/24 10:07 Amiodarone 200 Mg Tab PO 200 mg DAILY NANNETTE Administration Amlodipine Besylate 10 mg 08/07/24 09:00 08/07/24 10:08 Amlodipine 10 Mg Tab PO 10 mg DAILY NANNETTE Administration Apixaban 5 mg 08/07/24 09:00 08/07/24 10:09 Apixaban 5 Mg Tab PO 5 mg BID NANNETTE Administration Protocol Atorvastatin Calcium 40 mg 08/07/24 21:00 Atorvastatin 40 Mg Tab PO HS NANNETTE Duloxetine HCl 30 mg 08/07/24 09:00 08/07/24 10:07 Duloxetine Hcl 30 Mg Capsule.Dr PO 30 mg DAILY NANNETTE Administration Furosemide 40 mg 08/06/24 21:51 Furosemide 40 Mg Tab PO DAILY PRN Edema Sodium Chloride 1,000 mls @ 100 mls/hr 08/06/24 16:30 08/07/24 02:43 Saline 0.9% IV Not Given .Q10H NANNETTE Magnesium Oxide 400 mg 08/07/24 21:00 Magnesium Oxide 400 Mg Tab PO HS NANNETTE Metformin HCl 500 mg 08/07/24 07:30 08/07/24 10:07 Metformin 500 Mg Tab PO 500 mg BID-W/MEALS NANNETTE Administration Nitroglycerin 0.4 mg 08/06/24 14:30 Nitroglycerin Sl Tabs 0.4 Mg Tab SUBLINGUAL Q5M PRN Chest Pain Nitroglycerin 1 inch 08/06/24 18:00 08/07/24 11:37 Nitroglycerin Oint 1 Inch/Gm Packet TOPICAL Not Given Q6HR NANNETTE Intake and Output 08/06/24 08/07/24 08/07/24 22:59 06:59 14:59 Intake Total 4.917 Balance 4.917 Intake: Intake, IV Titration 4.917 Amount Diltiazem 125 mg In 4.917 Dextrose 5% in Water 100 ml @ 5 MG/HR 5 mls/hr IV .Q24H [facility] Rx#:[id number] 08/07/24 05:56 08/07/24 05:56
--- NOTE | 2024-08-07 17:30 | P.PN ---
Subjective Progress Note Date: 08/07/24 84-year-old female, history of hypertension, hyperlipidemia, diabetes mellitus, atrial fibrillation, who presents to the emergency department complaining of generalized weakness and chest pressure. Patient states is not pain but there is a heaviness on her chest. Patient denies radiation of the heaviness. Patient denies any difficulty breathing or shortness of breath. Patient denies any recent fever chills or cough. Patient states occasionally her A-fib kicks in and she can feel it going faster but currently she does not have that complaint. Patient denies any abdominal pain patient has nausea vomiting diarrhea. Patient denies any dysuria hematuria urinary frequency. Patient denies any recent injury or trauma. Blood work reveals WBC of 14.3, hemoglobin of 13.1 platelet count of 363, sodium 135, potassium 4.4, BUN/creatinine of 45/1.14, magnesium 1.4 troponin 0.030 UA reveals rare bacteria, leukocyte Estrace and nitrates negative EKG completed in ED revealed atrial fibrillation with RVR with heart rate of 146, patient was placed on IV Cardizem infusion, magnesium sulfate 2 g IV x 1 for magnesium of 1.4 and is being admitted for further cardiology evaluation -Chest x-ray shows no acute abnormality EKG shows atrial fibrillation at 98 bpm QRS 151 QT interval 362 QTc of 417. Patient's EKG shows no ST segment elevation. Patient does have a right bundle branch block Objective - Vital Signs Vital signs: Vital Signs Temp 97.7 F 08/06/24 19:57 Pulse 52 L 08/07/24 04:21 Resp 15 08/07/24 07:49 BP 97/57 08/07/24 04:21 Pulse Ox 97 08/07/24 04:21 FiO2 Intake & Output 08/06/24 08/07/24 08/07/24 18:59 06:59 18:59 Intake Total 4.917 Balance 4.917 Weight 69.4 kg Intake: Intake, IV Titration 4.917 Amount Diltiazem 125 mg In 4.917 Dextrose 5% in Water 100 ml @ 5 MG/HR 5 mls/hr IV .Q24H [facility] Rx#:[id number] - Exam GENERAL:Patient is well-developed and well-nourished. Patient is nontoxic and well-hydrated and is in no acute distress. ENT:Neck is soft and supple. No significant lymphadenopathy is noted. Oropharynx is clear. Moist mucous membranes. Neck has full range of motion wit hout eliciting any pain. EYES:The sclera were anicteric and conjunctiva were pink and moist. Extraocular movements were intact and pupils were equal round and reactive to light. Eyelids were unremarkable. PULMONARY:Unlabored respirations. Good breath sounds bilaterally. No audible rales rhonchi or wheezing was noted. CARDIOVASCULAR:Patient has an irregular heartbeat at about 95 beats a minute ABDOMEN:Soft and nontender with normal bowel sounds. No palpable organomegaly was noted. There is no palpable pulsatile mass. SKIN:Skin is clear with no lesions or rashes and otherwise unremarkable. NEUROLOGIC:Patient is alert and oriented x3. Cranial nerves II through XII are grossly intact. Motor and sensory are also intact. Normal speech, volume and content. Symmetrical smile. MUSCULOSKELETAL:Normal extremities with adequate strength and full range of motion. No lower extremity swelling or edema. No calf tenderness. PSYCHIATRIC:Normal psychiatric evaluation. - Labs CBC & Chem 7: 08/07/24 05:56 08/07/24 05:56 Labs: Abnormal Lab Results - Last 24 Hours (Table) 08/06/24 08/06/24 08/06/24 Range/Units 13:26 13:26 13:26 WBC 14.53 H (4.50-10.00) 10*3/uL Hgb (12.0-15.0) g/dL MCHC (32.0-37.0) g/dL MPV (9.5-12.2) fL Immature Gran # 0.05 H (0.00-0.04) 10*3/uL Neutrophils # 12.48 H (1.80-7.70) 10*3/uL Monocytes # (0.20-1.00) 10*3/uL Eosinophils # 0.02 L (0.04-0.35) 10*3/uL Sodium 134 L (137-145) mmol/L BUN 45 H (7-17) mg/dL Creatinine 1.14 H (0.52-1.04) mg/dL Glucose 201 H (74-99) mg/dL Plasma Lactic Acid Juan 2.4 H* (0.7-2.0) mmol/L Calcium 10.4 H (8.4-10.2) mg/dL Magnesium 1.4 L (1.6-2.3) mg/dL Urine Protein (Negative) Urine Bacteria (None) /hpf Urine Mucus (None) /hpf 08/06/24 08/07/24 08/07/24 Range/Units 13:27 05:56 05:56 WBC 10.69 H (4.50-10.00) 10*3/uL Hgb 11.9 L (12.0-15.0) g/dL MCHC 31.9 L (32.0-37.0) g/dL MPV 9.4 L (9.5-12.2) fL Immature Gran # 0.05 H (0.00-0.04) 10*3/uL Neutrophils # (1.80-7.70) 10*3/uL Monocytes # 1.05 H (0.20-1.00) 10*3/uL Eosinophils # (0.04-0.35) 10*3/uL Sodium 136 L (137-145) mmol/L BUN 41 H (7-17) mg/dL Creatinine 1.19 H (0.52-1.04) mg/dL Glucose 126 H (74-99) mg/dL Plasma Lactic Acid Juan (0.7-2.0) mmol/L Calcium (8.4-10.2) mg/dL Magnesium (1.6-2.3) mg/dL Urine Protein 1+ H (Negative) Urine Bacteria Rare H (None) /hpf Urine Mucus Rare H (None) /hpf Assessment and Plan Assessment: 1. Atrial fibrillation with RVR; patient remains on IV Cardizem infusion; we will continue with home dose of amiodarone and metoprolol; continue Eliquis - Cardiology to evaluate and make further recommendation 2. Acute renal injury; BUNs/creatinine elevated; patient received IV fluids in ED; will maintain maintenance fluid and monitor strict STEPHANI's, daily weights, renal function electrolytes; avoid nephrotoxins and hypotension 3. Hypomagnesemia; supplemented in ED; we will monitor electrolytes and for make further recommendations 4. Leukocytosis; no obvious source of infection; patient currently afebrile; will monitor CBC 5. Hypertension; Norvasc 10 mg daily; lisinopril 20 mg daily; metoprolol 50 mg daily 6. Hyperlipidemia; Lipitor 40 mg p.o. nightly 7. Diabetes mellitus without long-term insulin use; patient uses metformin 500 mg twice daily; monitor Accu-Cheks q. CHS with insulin sliding scale DVT prophylaxis; SCDs/Eliquis CODE STATUS; full code
[2024-08-07] MEDS: ATORVASTATIN 40 MG TAB PO SCH (20:48)
[2024-08-07] MEDS: MAGNESIUM OXIDE 400 MG TAB PO SCH (20:48)
[2024-08-07 21:36] LABS: Magnesium 1.3 mg/dL (1.6-2.3)
[2024-08-08] MEDS: HYDROcodone/APAP 5-325MG 1 EACH TAB PO PRN (00:21)
[2024-08-08 05:31] LABS: African American GFR (CKD) 65 (>60 ml/min/1.73 sqM); Anion Gap 5 mmol/L; Blood Urea Nitrogen 25 mg/dL (7-17); Calcium 9.3 mg/dL (8.4-10.2); Carbon Dioxide 27 mmol/L (22-30); Chloride 104 mmol/L (98-107); Glucose 107 mg/dL (74-99); Magnesium 1.4 mg/dL (1.6-2.3); Non-African American GFR(CKD) 56 (>60 ml/min/1.73 sqM); Sodium 136 mmol/L (137-145)
[2024-08-08 07:10] LABS: Glucose,Whole Blood 112 mg/dL (70-110)
[2024-08-08] MEDS: INSULIN LISPRO (HumaLOG) 100 UNIT/ML 10 mL VL SQ SCH (07:15)
[2024-08-08] MEDS: MAGNESIUM SULFATE-D5W PMX 1 GM in DEXTROSE/WATER 1 100ML.BAG IVPB SCH (08:25)
[2024-08-08 08:32] VITALS: BP 118/61; PULSE 72; RESP 17; TEMP 97.9
[2024-08-08] MEDS: CYANOCOBALAMIN 500 MCG TAB PO SCH (08:38)
[2024-08-08 09:16] VITALS: BMI 28.1
--- NOTE | 2024-08-09 00:12 | P.DS ---
Providers Date of admission: 08/06/24 14:39 Attending physician: Lucas Hightower Consults: 08/06/24 14:30 Consult Physician Urgent Consulting Provider: [facility] Consult Reason/Comments: Chest pain, A-fib Do you want consulting provider notified?: Yes Primary care physician: Cherrie Moreau Hospital Course: Diagnoses: 1. Atrial fibrillation with RVR; converted to sinus rhythm and cleared by administrative office clerk for discharge 2. Acute renal injury; mild and resolved 3. Hypomagnesemia; supplemented in ED; we will monitor electrolytes and for make further recommendations 4. Leukocytosis; no obvious source of infection; patient currently afebrile; will monitor CBC 5. Hypertension; Norvasc 10 mg daily; lisinopril 20 mg daily; metoprolol 50 mg daily 6. Hyperlipidemia; Lipitor 40 mg p.o. nightly 7. Diabetes mellitus without long-term insulin use; patient uses metformin 500 mg twice daily; monitor Accu-Cheks q. CHS with insulin sliding scale Hospital course: 84-year-old female, history of hypertension, hyperlipidemia, diabetes mellitus, atrial fibrillation, who presents to the emergency department complaining of generalized weakness and chest pressure. Patient was found to have A-fib and RVR, patient evaluated by administrative office clerk and patient symptoms resolved and currently she is converted to sinus rhythm denies chest pain or dyspnea or any other complaint and patient was cleared for discharge by administrative office clerk. Patient also confirms to me she has Eliquis at home She has severe hypomagnesemia which is replaced, thought secondary to Lasix which is held. Patient lisinopril dose lowered upon discharge from 20 down to 10 mg with close outpatient follow-up. Patient denies any other symptoms. Patient confirms to me she has Eliquis at home. Patient agreeing to go home today Problems and management plan were discussed with the patient and he verbalized understanding and acceptance Patient was found stable and can be discharged home in guarded prognosis however he needs follow-up as an outpatient. Patient was instructed to follow up with PCP Dr. Moreau within one week and patient agrees Patient was instructed to follow-up with her administrative office clerk Dr. Garcia in 1 week and she agrees Physical exam Gen: patient is a AAOx3, no distress CVS: S1-S2, RRR, no murmur Lungs: B/L CTA, no wheezing Abdomen: soft, no distention, no tenderness, positive bowel sounds Extremity: no leg edema or induration Time spent more than 35 minutes Plan - Discharge Summary Discharge Rx Participant: No New Discharge Prescriptions: New Cyanocobalamin [Vitamin B-12] 1,000 mcg PO DAILY #60 tab lisinopriL [Zestril] 10 mg PO DAILY #30 tab Continue metFORMIN HCL ER [Glucophage XR] 500 mg PO BID-W/MEALS ondansetron HCL [Zofran] 8 mg PO Q8H PRN PRN Reason: Nausea And Vomiting Amiodarone [Cordarone] 200 mg PO DAILY amLODIPine [Norvasc] 10 mg PO DAILY predniSONE 10 - 20 mg PO DIRECTED Atorvastatin [Lipitor] 40 mg PO HS Apixaban [Eliquis] 5 mg PO BID-W/MEALS DULoxetine HCL [Cymbalta] 30 mg PO DAILY Magnesium Oxide [Mag-Ox] 400 mg PO HS Discontinued lisinopriL [Zestril] 20 mg PO DAILY Furosemide [Lasix] 40 mg PO DAILY PRN PRN Reason: Edema Metoprolol Tartrate [Lopressor] 50 mg PO DAILY Discharge Medication List Atorvastatin [Lipitor] 40 mg PO HS 10/29/23 [History] Apixaban [Eliquis] 5 mg PO BID-W/MEALS 04/21/24 [History] metFORMIN HCL ER [Glucophage XR] 500 mg PO BID-W/MEALS 04/21/24 [History] Amiodarone [Cordarone] 200 mg PO DAILY 08/06/24 [History] DULoxetine HCL [Cymbalta] 30 mg PO DAILY 08/06/24 [History] Magnesium Oxide [Mag-Ox] 400 mg PO HS 08/06/24 [History] amLODIPine [Norvasc] 10 mg PO DAILY 08/06/24 [History] ondansetron HCL [Zofran] 8 mg PO Q8H PRN 08/06/24 [History] predniSONE 10 - 20 mg PO DIRECTED 08/06/24 [History] Cyanocobalamin [Vitamin B-12] 1,000 mcg PO DAILY #60 tab 08/08/24 [Rx] lisinopriL [Zestril] 10 mg PO DAILY #30 tab 08/08/24 [Rx] Follow up Appointment(s)/Referral(s): Nena Garcia MD [STAFF PHYSICIAN] - 1 Week (Pt stated she will call and make her own appointment) Cherrie Moreau MD [Primary Care Provider] - 1-2 days (Pt stated she will call and make her own appointment ) Crescencio Vasques DO [STAFF PHYSICIAN] - 1 Week (Pt stated she will call and make her own appointment) Patient Instructions/Handouts: A-fib (Atrial Fibrillation) (GEN), Chest Pain (GEN), Hypomagnesemia (GEN) Activity/Diet/Wound Care/Special Instructions: heart healthy diet activity is restricted till you see your doctor Discharge Disposition: HOME SELF-CARE
[2024-08-09 08:35] LABS: Albumin 3.35 g/dL (3.80-4.90); Gamma Globulin 1.23 g/dL (0.70-1.50)
[2024-08-09 18:50] LABS: ANA Pattern Speckled
== END 2024-08-08 11:44 | disposition home or self-care (01) | DRG 309 ==
LOC: EC 12:31 → 3SCARD 14:39 → 2SICU 08-07 17:54
PROVIDERS: ADMIT Hospitalist; ATTEND Hospitalist
DX: I48.91 Unspecified atrial fibrillation (principal); N17.9 Acute kidney failure, unspecified; I27.20 Pulmonary hypertension, unspecified; E78.5 Hyperlipidemia, unspecified; D72.829 Elevated white blood cell count, unspecified; E11.9 Type 2 diabetes mellitus without complications; I10 Essential (primary) hypertension; T50.1X5A Adverse effect of loop [high-ceiling] diuretics, initial encounter; I45.10 Unspecified right bundle-branch block; E83.42 Hypomagnesemia; F41.9 Anxiety disorder, unspecified; Z79.899 Other long term (current) drug therapy; Z79.84 Long term (current) use of oral hypoglycemic drugs; Z85.828 Personal history of other malignant neoplasm of skin; Z79.01 Long term (current) use of anticoagulants; X58.XXXA Exposure to other specified factors, initial encounter
CPT/HCPCS: 36415; 71046; 80048; 80053; 80061; 81001; 82306; 82607; 83036; 83605; 83735; 83880; 84165; 84443; 84484; 85025; 85610; 85730; 86038; 86039; 93005; 96361; 96365; 96368; 99291

== ENCOUNTER 2024-08-08 20:30 | Emergency (ER) | payer MEDICARE, BC ==
--- NOTE | 2024-08-08 20:49 | ED ---
General Adult HPI - General Chief complaint: Arrhythmia/Palpitations Stated complaint: Heart Palp,Weakness Time Seen by Provider: 08/08/24 20:48 Source: patient, family, RN notes reviewed Mode of arrival: wheelchair - History of Present Illness Initial comments: Quick note: 84-year-old female presents to the emergency department for evaluation of palpitations. Patient reports that she was just discharged from the hospital today for A-fib. She states that she went home and started having palpitations again. She notes that they are on and off. She denies any chest pain. She does note feeling weak. - Related Data Home Medications Medication Instructions Recorded Confirmed Atorvastatin [Lipitor] 40 mg PO HS 10/29/23 08/06/24 Apixaban [Eliquis] 5 mg PO BID-W/MEALS 04/21/24 08/06/24 metFORMIN HCL ER [Glucophage XR] 500 mg PO BID-W/MEALS 04/21/24 08/06/24 Amiodarone [Cordarone] 200 mg PO DAILY 08/06/24 08/06/24 DULoxetine HCL [Cymbalta] 30 mg PO DAILY 08/06/24 08/06/24 Magnesium Oxide [Mag-Ox] 400 mg PO HS 08/06/24 08/06/24 amLODIPine [Norvasc] 10 mg PO DAILY 08/06/24 08/06/24 ondansetron HCL [Zofran] 8 mg PO Q8H PRN 08/06/24 08/06/24 predniSONE 10 - 20 mg PO DIRECTED 08/06/24 08/06/24 Previous Rx's Medication Instructions Recorded Cyanocobalamin [Vitamin B-12] 1,000 mcg PO DAILY #60 tab 08/08/24 lisinopriL [Zestril] 10 mg PO DAILY #30 tab 08/08/24 Allergies Allergy/AdvReac Type Severity Reaction Status Date / Time ibuprofen [From Motrin] Allergy Rash/Hives Verified 08/06/24 18:25 Review of Systems ROS Statement: Those systems with pertinent positive or pertinent negative responses have been documented in the HPI. ROS Other: All systems not noted in ROS Statement are negative. Past Medical History Past Medical History: Atrial Fibrillation, Cancer, Diabetes Mellitus, GERD/Reflux, Hyperlipidemia, Hypertension, Osteoarthritis (OA) Additional Past Medical History / Comment(s): SKIN CANCER History of Any Multi-Drug Resistant Organisms: None Reported Past Surgical History: Appendectomy, Back Surgery, Section, Cholecystectomy, Hernia Repair, Joint Replacement, Tubal Ligation Additional Past Surgical History / Comment(s): NECK SURGERY, Past Anesthesia/Blood Transfusion Reactions: No Reported Reaction Past Psychological History: Anxiety Smoking Status: Former smoker Past Alcohol Use History: Rare Past Drug Use History: None Reported - Past Family History Sister(s) Family Medical History: Cancer Additional Family Medical History / Comment(s): BREAST CANCER / ANOTHER SISTER HAD LEUKEMIA Son(s) Family Medical History: Cancer Additional Family Medical History / Comment(s): MELENOMA Brother(s) Family Medical History: Cancer Additional Family Medical History / Comment(s): SKIN CANCER General Exam - General Exam Comments Initial Comments: Visual Physical Exam Vital signs reviewed General: Well-appearing, nontoxic, no acute distress. Head: Normocephalic, atraumatic Eyes: PERRLA, EOMI ENT: Airway patent Chest: Nonlabored breathing Skin: No visual rash, normal skin tone Neuro: Alert and oriented 3 Musculoskeletal: No gross abnormalities Limitations: no limitations General appearance: alert, in no apparent distress Head exam: Present: atraumatic, normocephalic, normal inspection Eye exam: Present: normal appearance, PERRL, EOMI. Absent: scleral icterus, conjunctival injection, periorbital swelling ENT exam: Present: normal exam, mucous membranes moist Neck exam: Present: normal inspection. Absent: tenderness, meningismus, lymphadenopathy Respiratory exam: Present: normal lung sounds bilaterally. Absent: respiratory distress, wheezes, rales, rhonchi, stridor Cardiovascular Exam: Present: regular rate, normal rhythm, normal heart sounds. Absent: systolic murmur, diastolic murmur, rubs, gallop, clicks GI/Abdominal exam: Present: soft. Absent: distended, tenderness, guarding, rebound, rigid Extremities exam: Present: normal inspection, full ROM, normal capillary refill. Absent: tenderness, pedal edema, joint swelling, calf tenderness Back exam: Present: normal inspection Neurological exam: Present: alert, oriented X3 Psychiatric exam: Present: normal affect, normal mood Skin exam: Present: warm, dry, intact, normal color. Absent: rash Course Vital Signs 08/08/24 08/08/24 08/09/24 20:41 22:54 00:22 Temperature 98.5 F 98.0 F Pulse Rate 91 80 80 Respiratory 18 17 17 Rate Blood Pressure 146/73 138/82 139/68 O2 Sat by Pulse 96 98 Oximetry Medical Decision Making - Medical Decision Making Quick note preformed and electronically signed by Shona Crooks PA-C Was pt. sent in by a medical professional or institution ([facility], [facility], urgent care, hospital, or [facility]...) When possible be specific @ -[No] Did you speak to anyone other than the patient for history (EMS, parent, family, police, friend...)? What history was obtained from this source @ -[No] Did you review nursing and triage notes (agree or disagree)? Why? @ -[I reviewed and agree with nursing and triage notes] Were old charts reviewed (outside hosp., previous admission, EMS record, old EKG, old radiological studies, urgent care reports/EKG's, [facility] records)? Report findings @ -[No old charts were reviewed] Differential Diagnosis (chest pain, altered mental status, abdominal pain women, abdominal pain men, vaginal bleeding, weakness, fever, dyspnea, syncope, headache, dizziness, GI bleed, back pain, seizure, CVA, palpatations, mental health, musculoskeletal)? @ -Differential Palpitations Ventricular arrhythmias, atrial arrhythmias, myocardial infarction, anemia, thyrotoxicosis, electrolyte imbalance, hypokalemia, pulmonary embolism, pulmonary disease, drugs, alcohol, anxiety, stress.... This is not meant to be an all-inclusive list. EKG interpreted by me (3pts min.). @ -[EKG at 2051 shows sinus rhythm with occasional PVCs, rate of 85, VT 175, QRS 132, QTQTc [id number]] X-rays interpreted by me (1pt min.). @ -Chest x-ray reveals no acute process CT interpreted by me (1pt min.). @ -[None done] U/S interpreted by me (1pt. min.). @ -[None done] What testing was considered but not performed or refused? (CT, X-rays, U/S, labs)? Why? @ -[None] What meds were considered but not given or refused? Why? @ -[None] Did you discuss the management of the patient with other professionals (chalino tejadae. , PA, CHICKEN TENDER, lab, RT, psych nurse, elementary school social worker, meatman, teacher, bsa officer, classification case manager)? Give summary @ -[No] Was smoking cessation discussed for >3mins.? @ -[No] Was critical care preformed (if so, how long)? @ -[No] Were there social determinants of health that impacted care today? How? (Homelessness, low income, unemployed, alcoholism, drug addiction, transportatio n, low edu. Level, literacy, decrease access to med. care, assisted, rehab)? @ -[No] Was there de-escalation of care discussed even if they declined (Discuss DNR or withdrawal of care, Hospice)? DNR status @ -[No] What co-morbidities impacted this encounter? (DM, HTN, Smoking, COPD, CAD, Cancer, CVA, ARF, Chemo, Hep., AIDS, mental health diagnosis, sleep apnea, morbid obesity)? @ -[None] Was patient admitted / discharged? Hospital course, mention meds given and route, prescriptions, significant lab abnormalities, going to OR and other pertinent info. @ -Discharge. Patient presented the emergency department for evaluation of palpitations and weakness. Patient has had no further episodes while in the emergency department. Laboratory studies obtainedRevealing WBC of 14; normal co agulation studies; CMP is nonactionable, troponin 0.012, TSH within normal limits. Chest x-ray reveals no acute process. Patient is feeling well and will be discharged home. She is understanding agreeable with discharge plan. Patient stable at time of discharge. Case discussed with Dr. Bates Undiagnosed new problem with uncertain prognosis? @ -[No] Drug Therapy requiring intensive monitoring for toxicity (Heparin, Nitro, Insulin, Cardizem)? @ -[No] Were any procedures done? @ -[No] Diagnosis/symptom? @ -Palpitations Acute, or Chronic, or Acute on Chronic? @ -Acute Uncomplicated (without systemic symptoms) or Complicated (systemic symptoms)? @ -Uncomplicated Side effects of treatment? @ -[No] Exacerbation, Progression, or Severe Exacerbation? @ -[No] Poses a threat to life or bodily function? How? (Chest pain, USA, DC, pneumonia, PE, COPD, DKA, ARF, appy, cholecystitis, CVA, Diverticulitis, Homicidal, Suicidal, threat to staff... and all critical care pts) @ -[No] - Lab Data Result diagrams: 08/08/24 22:54 08/08/24 22:54 Lab Results 08/08/24 08/08/24 08/08/24 Range/Units 22:54 22:54 22:54 WBC 14.27 H (4.50-10.00) 10*3/uL RBC 4.38 (4.10-5.20) 10*6/uL Hgb 12.6 (12.0-15.0) g/dL Hct 38.3 (37.2-46.3) % MCV 87.4 (80.0-97.0) fL MCH 28.8 (27.0-32.0) pg MCHC 32.9 (32.0-37.0) g/dL Plt Count 279 (140-440) 10*3/uL MPV 9.3 L (9.5-12.2) fL Immature Gran % (Auto) 0.4 % Neutrophils % 77.9 % Lymphocytes % 11.9 % Monocytes % 8.3 % Eosinophils % 1.2 % Basophils % 0.3 % Immature Gran # 0.05 H (0.00-0.04) 10*3/uL Neutrophils # 11.13 H (1.80-7.70) 10*3/uL Lymphocytes # 1.70 (0.90-5.00) 10*3/uL Monocytes # 1.18 H (0.20-1.00) 10*3/uL Eosinophils # 0.17 (0.04-0.35) 10*3/uL Basophils # 0.04 (0.00-0.10) 10*3/uL PT 10.8 (10.0-12.5) sec INR 1.0 (<1.2) APTT 22.4 (22.0-30.0) sec Sodium 137 (137-145) mmol/L Potassium 4.1 (3.5-5.1) mmol/L Chloride 103 (98-107) mmol/L Carbon Dioxide 23 (22-30) mmol/L Anion Gap 11 mmol/L BUN 17 (7-17) mg/dL Creatinine 0.77 (0.52-1.04) mg/dL Est GFR (CKD-EPI)AfAm 81 (>60 ml/min/1.73 sqM) Est GFR (CKD-EPI)NonAf 70 (>60 ml/min/1.73 sqM) Glucose 152 H (74-99) mg/dL Calcium 10.3 H (8.4-10.2) mg/dL Magnesium 1.8 (1.6-2.3) mg/dL Total Bilirubin 0.5 (0.2-1.3) mg/dL AST 23 (14-36) U/L ALT 17 (4-34) U/L Alkaline Phosphatase 79 (38-126) U/L Troponin I (0.000-0.034) ng/mL Total Protein 7.0 (6.3-8.2) g/dL Albumin 3.9 (3.5-5.0) g/dL TSH 2.210 (0.465-4.680) mIU/L 08/08/24 Range/Units 22:54 WBC (4.50-10.00) 10*3/uL RBC (4.10-5.20) 10*6/uL Hgb (12.0-15.0) g/dL Hct (37.2-46.3) % MCV (80.0-97.0) fL MCH (27.0-32.0) pg MCHC (32.0-37.0) g/dL Plt Count (140-440) 10*3/uL MPV (9.5-12.2) fL Immature Gran % (Auto) % Neutrophils % % Lymphocytes % % Monocytes % % Eosinophils % % Basophils % % Immature Gran # (0.00-0.04) 10*3/uL Neutrophils # (1.80-7.70) 10*3/uL Lymphocytes # (0.90-5.00) 10*3/uL Monocytes # (0.20-1.00) 10*3/uL Eosinophils # (0.04-0.35) 10*3/uL Basophils # (0.00-0.10) 10*3/uL PT (10.0-12.5) sec INR (<1.2) APTT (22.0-30.0) sec Sodium (137-145) mmol/L Potassium (3.5-5.1) mmol/L Chloride (98-107) mmol/L Carbon Dioxide (22-30) mmol/L Anion Gap mmol/L BUN (7-17) mg/dL Creatinine (0.52-1.04) mg/dL Est GFR (CKD-EPI)AfAm (>60 ml/min/1.73 sqM) Est GFR (CKD-EPI)NonAf (>60 ml/min/1.73 sqM) Glucose (74-99) mg/dL Calcium (8.4-10.2) mg/dL Magnesium (1.6-2.3) mg/dL Total Bilirubin (0.2-1.3) mg/dL AST (14-36) U/L ALT (4-34) U/L Alkaline Phosphatase (38-126) U/L Troponin I 0.012 (0.000-0.034) ng/mL Total Protein (6.3-8.2) g/dL Albumin (3.5-5.0) g/dL TSH (0.465-4.680) mIU/L Disposition Clinical Impression: Palpitations, Weakness Disposition: HOME SELF-CARE Condition: Stable Instructions (If sedation given, give patient instructions): Heart Palpitations (ED) Additional Instructions: Please follow-up with your doctors. Return to the emergency department for new or worsening symptoms. Is patient prescribed a controlled substance at d/c from ED?: No Referrals: Cherrie Moreau MD [Primary Care Provider] - 1-2 days
[2024-08-08 22:55] VITALS: PULSE 80; RESP 17
[2024-08-08 23:00] LABS: Basophils # (A) 0.04 10*3/uL (0.00-0.10); Basophils % (A) 0.3 %; Eosinophils # (A) 0.17 10*3/uL (0.04-0.35); Eosinophils % (A) 1.2 %; HCT 38.3 % (37.2-46.3); HGB 12.6 g/dL (12.0-15.0); Lymphocytes % (A) 11.9 %; MCH 28.8 pg (27.0-32.0); MCHC 32.9 g/dL (32.0-37.0); MCV 87.4 fL (80.0-97.0); Mean Platelet Volume 9.3 fL (9.5-12.2); Monocytes # (A) 1.18 10*3/uL (0.20-1.00); Monocytes % (A) 8.3 %; Neutrophils # (A) 11.13 10*3/uL (1.80-7.70); Neutrophils % (A) 77.9 %; Platelet Count 279 10*3/uL (140-440); RBC 4.38 10*6/uL (4.10-5.20); RDW 13.8 % (11.5-14.5); WBC 14.27 10*3/uL (4.50-10.00)
[2024-08-08 23:19] LABS: ALT 17 U/L (4-34); AST 23 U/L (14-36); African American GFR (CKD) 81 (>60 ml/min/1.73 sqM); Albumin 3.9 g/dL (3.5-5.0); Alkaline Phosphatase 79 U/L (38-126); Anion Gap 11 mmol/L; Blood Urea Nitrogen 17 mg/dL (7-17); Calcium 10.3 mg/dL (8.4-10.2); Carbon Dioxide 23 mmol/L (22-30); Chloride 103 mmol/L (98-107); Glucose 152 mg/dL (74-99); Magnesium 1.8 mg/dL (1.6-2.3); Non-African American GFR(CKD) 70 (>60 ml/min/1.73 sqM); Potassium 4.1 mmol/L (3.5-5.1); Sodium 137 mmol/L (137-145); Total Bilirubin 0.5 mg/dL (0.2-1.3)
[2024-08-08 23:27] LABS: Partial Thromboplastin Time 22.4 sec (22.0-30.0); Prothrombin Time 10.8 sec (10.0-12.5)
[2024-08-08] MEDS: SODIUM CHLORIDE 0.9% 1,000 ML IV STA (23:27)
--- NOTE | 2024-08-09 00:21 | XR ---
EXAM: XR Chest, 2 Views CLINICAL HISTORY: Heart palpitations, denies chest pain - was discharged from hospital this morning. Was here for Afib Complains of headache TECHNIQUE: Frontal and lateral views of the chest. COMPARISON: 08/06/2024 FINDINGS: Lungs: Unremarkable. No consolidation. Pleural space: Unremarkable. Mediastinum: Unremarkable. Normal mediastinal contour. Bones/joints: No acute findings. Upper abdomen: Cholecystectomy clips. IMPRESSION: No acute findings in the chest.
[2024-08-09 00:23] VITALS: BP 139/68; TEMP 98
== END 2024-08-09 00:22 | disposition home or self-care (01) ==
LOC: EC 20:30
DX: R00.2 Palpitations (principal); R53.1 Weakness; Z87.891 Personal history of nicotine dependence; Z88.6 Allergy status to analgesic agent
CPT/HCPCS: 36415; 71046; 80053; 83735; 84443; 84484; 85025; 85610; 85730; 93005; 96360; 99285